=== PATIENT | female | born 1945 | race Caucasian/White ===

== ENCOUNTER 2019-09-01 06:13 | Inpatient (IN) | payer MEDICARE, MEDICAID, SELFPAY ==
[2019-09-01] VITALS (17 sets, daily range): BP systolic 123–187; BP diastolic 53–86; PULSE 61–103; RESP 17–80; TEMP 36.1–37; O2SAT 91–100; BMI 36.8
--- NOTE | 2019-09-01 | ECHO_ITS ---
Patient Info Name: Nicole Gross Age: 74 years : 1945 Gender: Female Ht: 65 in Wt: 221 lbs BSA: 2.19 m2 HR: 64 bpm BP: 145 / 63 mmHg Heart Rhythm: Sinus Rhythm Technical Quality: Good Exam Date: 09/01/2019 1:42 PM Exam Location: [facility] Pulmonary Patient Status: Outpatient Admit Date: 09/01/2019 Staff Ordering Physician: Kenji Naylor MD Bench Lathe Operator: Jose Martin Machuca, RAQUEL, RT Attending Provider: Merritt Cobian MD Referring Physician: [facility] ; Exam Type: CA echo dop color flow w con Study Info Indications R07.89 - Other chest pain Complete two-dimensional, color flow and Doppler transthoracic echocardiogram is performed with contrast to opacify the left ventricle and to improve the deliniation of the left ventricle endocardial borders. Summary 1. Left ventricular chamber dimension is mildly enlarged. 2. Left ventricular systolic function is mildly reduced, estimated at 50-55%. 3. There is moderately increased left ventricular wall thickness. 4. The left ventricular diastolic function is grade II diastolic dysfunction. 5. The basal inferior wall, mid inferior wall, basal inferoseptal, and mid inferoseptal are hypokinetic. 6. Left atrial chamber dimension is mildly enlarged. 7. The mitral valve has thickened leaflets and calcified annulus. 8. There is mild mitral valve stenosis. 9. There is moderate mitral valve regurgitation. 10. There is mild tricuspid valve regurgitation. 11. Severe pulmonary hypertension, estimated pulmonary arterial systolic pressure is 61 mmHg. 12. There is mild pulmonic regurgitation. Left Ventricle Left ventricular chamber dimension is mildly enlarged. Left ventricular systolic function is mildly reduced, estimated at 50-55%. There is moderately increased left ventricular wall thickness. The left ventricular diastolic function is grade II diastolic dysfunction. The basal inferior wall, mid inferior wall, basal inferoseptal, and mid inferoseptal are hypokinetic. All other castillo appear normal. Right Ventricle Right ventricular chamber dimension is normal. Right ventricular systolic function is normal. Left Atria Left atrial chamber dimension is mildly enlarged. Right Atria Right atrial chamber dimension is normal. Atrial Septum Intact interatrial septum visualized by color flow imaging. Aortic Valve The aortic valve is trileaflet. There is mild aortic valve sclerosis. There is no aortic valve stenosis. There is trace aortic valve regurgitation. Pulmonic Valve The pulmonic valve is normal. There is no pulmonic valve stenosis. There is mild pulmonic regurgitation. Mitral Valve The mitral valve has thickened leaflets and calcified annulus. There is mild mitral valve stenosis. There is moderate mitral valve regurgitation. Tricuspid Valve The tricuspid valve leaflets are normal. There is no significant tricuspid valve stenosis. There is mild tricuspid valve regurgitation. Severe pulmonary hypertension, estimated pulmonary arterial systolic pressure is 61 mmHg. Pericardium/Pleural The pericardium appears normal. There is no pericardial effusion. Inferior Vena Cava Dilated inferior vena cava with <50% collapse upon inspiration consistent with elevated right atrial pressure, 15 mmHg. Aorta The aortic root size at the sinus of Valsalva is normal. The prox ascending aorta size is normal. There is mild aortic atherosclerosis. Left Ventricular Outflow Tract
--- NOTE | ~2019-09-01 | MR_ITS ---
EXAMINATION: MR brain/brain stem wo con EXAM DATE: 09/02/2019 15:54 INDICATION: Right-sided hemiparesis. TECHNIQUE: Magnetic resonance imaging (MRI) of the brain/brain stem obtained without contrast. Jemima al T1, axial diffusion, gradient echo (T2*), T1, T2, FLAIR sequences obtained. There is no prior st udy for comparison. FINDINGS: There are no areas of restricted diffusion to suggest acute infarction. There is no acute hemorrhage seen on the T2*, a hemosiderin sensitive sequence. No intraparenchymal brain mass lesion. There is mild periventricular and subcortical T2/FLAIR signal hyperintensity, nonspecific but probab ly related to small vessel ischemic disease (microangiopathy). There is mild prominence of the sulc i and ventricles related to cerebral atrophy. There are no extra-axial collections. Flow voids are seen in the cerebral arteries on the T2-weighted sequences consistent with their expected patency. The orbits are unremarkable. Soft tissue is unremarkable. IMPRESSION: 1. No acute intracranial findings. 2. Chronic age related findings. Reviewed, dictated and finalized at location A.
--- NOTE | ~2019-09-01 | MR_ITS ---
EXAMINATION: MRA neck wo con DATE: 09/05/2019 12:59 INDICATION: Right hemiparesis. TECHNIQUE: Magnetic resonance angiography (MRA) of the neck was performed without intravenous contras t. Sequences included axial 2D-time of flight T1-weighted FSPGR and axial Inhance without intravenous contrast. COMPARISON: Ultrasound 09/02/2019 FINDINGS: Motion artifact is noted. The vertebral arteries are codominant. The vertebral arteries are not well evaluated approximately and distally. There is plaque in the proximal internal carotid arteries, whic h are tortuous. The degree of stenosis of the proximal internal carotid arteries relative to normal d istal artery lumen diameters could not be measured. IMPRESSION: 1. Nondiagnostic evaluation of the proximal internal carotid arteries. Reviewed, dictated and finalized at location E.
--- NOTE | ~2019-09-01 | US_ITS ---
EXAMINATION: US renal BI DATE: 09/01/2019 15:18 INDICATION: Renal failure TECHNIQUE: Multiple grayscale and Doppler ultrasound images of the kidneys were obtained. COMPARISON: None. FINDINGS: The right kidney measures 9.0 x 4.1 x 5.2 cm. The left kidney measures 10.9 x 4.0 x 4.0 cm. The kidneys demonstrate increased parenchymal echogenicity. There is no hydronephrosis. The bladder is normal. IMPRESSION: 1. Medical renal disease with mild atrophy of the kidneys. Reviewed, dictated and finalized at location A.
--- NOTE | ~2019-09-01 | NM_ITS ---
EXAMINATION: NM pulmonary perfusion EXAM DATE: 09/01/2019 15:09 INDICATION: Shortness of breath. TECHNIQUE: A perfusion lung scan was performed. The patient was injected with 5 mCi technetium 99m M AA and imaged. Modified PIOPED 2 criteria used for interpretation of perfusion without ventilation st udy (recent chest x-ray instead for comparison). Correlation is made to chest CT abdomen pelvis and c hest x-ray from same day. FINDINGS: Mildly heterogeneous perfusion without focal segmental perfusion defect. IMPRESSION: Low probability pulmonary embolism. Reviewed, dictated and finalized at location A.
--- NOTE | ~2019-09-01 | CT_ITS ---
EXAMINATION: CT abdomen pelvis wo con DATE: 09/01/2019 15:20 INDICATION: Abdominal and epigastric pain TECHNIQUE: Computed tomography (CT) of the abdomen and pelvis was performed without intravenous contr ast. The dose-length product (DLP) was 1462.71 mGy-cm. Automated exposure control and iterative recon struction technique were employed. COMPARISON: None FINDINGS: There are small pleural effusions, left greater than right. Smooth interlobular septal thic kening minimal airspace opacities are seen in the visualized lung bases. The heart size is normal. Th e gallbladder is surgically absent. The liver, spleen, pancreas, and adrenal glands are normal. There is mild atrophy of the kidneys. There is calcified atherosclerosis of the aorta and many of the othe r arteries. No pathologically enlarged abdominal or pelvic lymph nodes are identified. There is no fr ee intraperitoneal gas or evidence of bowel obstruction. Colonic diverticulosis is present without ev idence of diverticulitis. There is an old intertrochanteric fracture of the left femur with nonunion and proximal migration of the left femoral shaft. There is moderate lumbar spondylosis. IMPRESSION: 1. No CT correlate for the patient's symptoms. 2. Small pleural effusions, mild pulmonary edema, and mild atelectasis of the visualized lung bases. Reviewed, dictated and finalized at location A. IMPRESSION: 1. No CT correlate for the patient's symptoms. 2. Small pleural effusions, mild pulmonary edema, and mild atelectasis of the v isualized lung bases.
--- NOTE | ~2019-09-01 | CT_ITS ---
EXAMINATION: CT chest high resolution [facility] EXAM DATE: 09/02/2019 16:20 INDICATION: Interstitial lung disease, pulmonary fibrosis. Chest pain. TECHNIQUE: Spiral CT of the chest without contrast. HRCT. Axial, coronal and sagittal images were re viewed. Coronal maximum intensity pixel images of chest reviewed. The dose-length product (DLP) for this examination was 615.51 mGy-cm. The exposure was tailored according to patient size (auto mA ex posure control), and iterative reconstruction (ASIR) was used as additional dose reduction technique. There is no prior study for comparison. FINDINGS: There is cardiomegaly and pulmonary vascular congestion. The main, central pulmonary art eries are dilated which can indicate elevated pulmonary arterial pressure, pulmonary arterial hyperte nsion. There is moderate amount of patchy bibasilar edema and/or pneumonia. There are small to moder ate bilateral pleural effusions with associated adjacent atelectasis. Tracheobronchial tree is patent . There is no mediastinal, hilar or axillary lymphadenopathy. There is no pneumothorax. There is moderate coronary arterial calcification, arterial sclerosis. There are cholecystectomy clips. T here is thoracic spondylosis without osteoblastic or osteolytic lesions identified. IMPRESSION: 1. Cardiomegaly, congestion, patchy right bilateral edema and/or pneumonia. 2. Small to moderate pleural effusions with adjacent compressive atelectasis. Reviewed, dictated and finalized at location A.
--- NOTE | ~2019-09-01 | XR_ITS ---
EXAMINATION: XR chest 1V portable DATE: 09/01/2019 06:27 INDICATION: Chest pain. TECHNIQUE: A single frontal view of the chest was obtained. COMPARISON: None. FINDINGS: There is a diffuse interstitial pattern, consistent with mild pulmonary edema. There is a s mall left pleural effusion. No pneumothorax. The heart size is normal. IMPRESSION: 1. Mild pulmonary edema with small left pleural effusion. Reviewed, dictated and finalized at location A.
--- NOTE | ~2019-09-01 | US_ITS ---
EXAMINATION: US carotid duplex BI EXAM DATE: 09/02/2019 16:11 INDICATION: Right-sided hemiparesis. TECHNIQUE: Grayscale, color and pulsed Doppler images of the cervical carotid arteries were obtained . The degree of vessel stenosis is placed in one of the following categories: normal, <50% stenosis, 50-69% stenosis, >=70% stenosis but less than near-occlusion, near-occlusion, or occlusion. Note that percent stenosis relative to normal distal artery lumen diameter is indirectly measured from velocit y measurements as described by Brain, et al. Radiology 2003; 229:340-346. There is no prior study fo r comparison. FINDINGS: RIGHT SIDE: Right common carotid artery peak systolic velocity (PSV in cm/s): 63 Right bulb/internal carotid artery peak systolic velocity (PSV in cm/s): 242 Right internal carotid artery end diastolic velocity (EDV in cm/s): 58 Right ICA/CCA peak systolic ratio: 3.9 Right external carotid artery peak systolic velocity (PSV in cm/s): 198 Right vertebral artery antegrade flow: yes There is right carotid bulb plaque, with elevated velocity corresponding to estimated stenosis >=70% stenosis but less than near-occlusion. LEFT SIDE: Left common carotid artery peak systolic velocity (PSV in cm/s): 89 Left bulb/internal carotid artery peak systolic velocity (PSV in cm/s): 184 Left internal carotid artery end diastolic velocity (EDV in cm/s): 30 Left ICA/CCA peak systolic ratio: 2.1 Left external carotid artery peak systolic velocity (PSV in cm/s): 126 Left vertebral artery antegrade flow: yes There is mild carotid bulb plaque with elevated velocity, but visually less than 50% stenosis. IMPRESSION: 1. >=70% stenosis but less than near-occlusion right internal carotid artery. 2. Less than 50 percent stenosis in the left internal carotid artery. Reviewed, dictated and finalized at location A.
--- NOTE | ~2019-09-01 | XR_ITS ---
EXAMINATION: XR chest 1V portable INDICATION: Shortness of breath TECHNIQUE: Portable AP chest at 1322 hours COMPARISON: 09/01/2019 FINDINGS: There is stable cardiomegaly. Diffuse interstitial and airspace opacities are present, wors t in the mid and lower lung zones. Small pleural effusions are noted. There is no pneumothorax. 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 IMPRESSION: 1. Diffuse lung disease,, worst in the mid and lower lung zones, consistent with pneumonia and/or pul monary edema and/or atelectasis. 2. Stable cardiomegaly. 3. Small pleural effusions. Reviewed, dictated and finalized at location A. IMPRESSION: 1. Diffuse lung disease,, worst in the mid and lower lung zones, consistent wit h pneumonia and/or pulmonary edema and/or atelectasis. 2. Stable cardiomegaly. 3. Small pleural effusions.
--- NOTE | ~2019-09-01 | US_ITS ---
EXAMINATION: US venous doppler LE RT DATE: 09/01/2019 15:19 INDICATION: Right lower limb edema TECHNIQUE: Deng scale images without and with compression and Doppler images of the right lower extre mity veins were obtained. COMPARISON: None FINDINGS: The right common femoral vein, profunda femoral vein, femoral vein, popliteal vein, peronea l trunk, posterior tibial veins, and greater saphenous vein are patent. IMPRESSION: 1. Patent right lower extremity veins. No evidence of deep venous thrombosis. Reviewed, dictated and finalized at location A.
--- NOTE | ~2019-09-01 | CT_ITS ---
EXAMINATION: CT brain wo con DATE: 09/03/2019 13:48 INDICATION: Mental status change. TECHNIQUE: Computed tomography (CT) of the head was performed without intravenous contrast. The mA wa s adjusted according to patient size. Iterative reconstruction technique was employed. The dose-lengt h product was 681.00 mGy-cm. COMPARISON: Brain MRI 09/02/2019 FINDINGS: There are scattered areas of low attenuation in the cerebral white matter. There is no intr acranial hemorrhage, acute infarction, or abnormal intracranial mass lesion. The ventricles are asael l in size. The orbits are normal. There is mucosal thickening in the paranasal sinuses. Left maxillar y sinus is small with thickened castillo, consistent with chronic sinusitis. The mastoid air cells are n ormal. IMPRESSION: 1. Moderate nonspecific cerebral white matter disease, which likely represents chronic small vessel i schemic disease. 2. Chronic sinusitis. Reviewed, dictated and finalized at location A. IMPRESSION: 1. Moderate nonspecific cerebral white matter disease, which likely represents chronic small vessel ischemic disease. 2. Chronic sinusitis.
--- NOTE | ~2019-09-01 | XR_ITS ---
EXAMINATION: XR chest 1V portable DATE: 09/06/2019 12:38 INDICATION: Shortness of breath. TECHNIQUE: A single frontal view of the chest was obtained. COMPARISON: Chest single view 09/03/2019, chest CT 09/02/2019 FINDINGS: Sensitivity is decreased by obesity. There is a diffuse interstitial pattern. There are air space opacities in the mid and lower lung zones. There are small pleural effusions. No pneumothorax. Cardiomegaly is noted. IMPRESSION: 1. Diffuse lung disease with worsening on the right, likely moderate pulmonary edema. 2. Small pleural effusions. 3. Cardiomegaly. Reviewed, dictated and finalized at location A.
--- NOTE | 2019-09-01 06:13 | ED.CHESTPAIN ---
HPI - Chest Pain General Chief Complaint: Chest Pain <Brain Dye MD - Last Filed: 09/01/19 19:38> Stated Complaint: stemi <Brain Dye MD - Last Filed: 09/01/19 19:38> Time Seen by Provider: 09/01/19 07:24 <Brain Dye MD - Last Filed: 09/01/19 19:38> History of Present Illness HPI narrative: 74 yo female w/ h/o CAD BIBEMS from long-term for suspected STEMI. EMS was originally called out for low oxygen saturation. While they were there the pateint complained of chest and back pain. EKG at that time showed a left bundle branch block. EMS called a STEMI. She was given aspirin and nitro. On arrival to the ED she is pain free. She still c/o some mild SOB. She is reportedly supposed to be schedule for a cardiac cath, but it has been postponed due to COVID-19. <Brain Dye MD - Last Filed: 09/01/19 19:38> Related Data Home Medications: Home Medications Medication Instructions Recorded Confirmed alprazolam 0.5 mg PO TID PRN 09/01/19 09/01/19 amlodipine 5 mg PO DAILY 09/01/19 09/01/19 aspirin 81 mg PO QAM 09/01/19 09/01/19 atorvastatin 80 mg PO HS 09/01/19 09/01/19 cyclobenzaprine 5 mg PO TID PRN 09/01/19 09/01/19 duloxetine 30 mg PO QAM 09/01/19 09/01/19 esomeprazole magnesium [Nexium] 40 mg PO QAM 09/01/19 09/01/19 famotidine 20 mg PO DAILY 09/01/19 09/01/19 gabapentin 300 mg PO TID 09/01/19 09/01/19 glipizide 5 mg PO DAILY 09/01/19 09/01/19 insulin glargine [Basaglar KwikPen 20 unit SUBCUT QPM 09/01/19 09/01/19 U-100 Insulin] ipratropium-albuterol 3 ml INHALATION Q6H PRN 09/01/19 09/01/19 isosorbide dinitrate 30 mg PO TID 09/01/19 09/01/19 metoprolol tartrate 25 mg PO QAM 09/01/19 09/01/19 nitroglycerin 0.4 mg SUBLINGUAL Q5-15M PRN 09/01/19 09/01/19 paroxetine mesylate 40 mg PO HS 09/01/19 09/01/19 phenazopyridine 100 mg PO TID PRN 09/01/19 09/01/19 ranolazine 1,000 mg PO Q12H PRN 09/01/19 09/01/19 tamsulosin [Flomax] 0.4 mg PO QAM 09/01/19 09/01/19 tizanidine 2 mg PO TID PRN 09/01/19 09/01/19 tramadol 50 mg PO Q4-6H PRN 09/01/19 09/01/19 <Brain Dye MD - Last Filed: 09/01/19 19:38> Allergies/Adverse Reactions: Allergies Allergy/AdvReac Type Severity Reaction Status Date / Time codeine Allergy Unknown Other Verified 09/01/19 07:47 <Brain Dye MD - Last Filed: 09/01/19 19:38> Review of Systems Review of Systems: All systems reviewed & are unremarkable except as noted in HPI and below <Brain Dye MD - Last Filed: 09/01/19 19:38> Constitutional: Constitutional: Denies chills and Denies fever(s) <Brain Dye MD - Last Filed: 09/01/19 19:38> ENT: Denies sore throat <Brain Dye MD - Last Filed: 09/01/19 19:38> Cardiovascular: Cardiovascular: Reports chest pain <Brain Dye MD - Last Filed: 09/01/19 19:38> Respiratory: Respiratory: Reports dyspnea <Brain Dye MD - Last Filed: 09/01/19 19:38> Gastrointestinal: Gastrointestinal: Denies abdominal pain <Brain Dye MD - Last Filed: 09/01/19 19:38> Musculoskeletal: Musculoskeletal: Reports back pain <Brain Dye MD - Last Filed: 09/01/19 19:38> Neurologic: Denies dizziness and Denies weakness <Brain Dye MD - Last Filed: 09/01/19 19:38> [facility] Past Medical History Medical History: Medical History Anxiety and depression Chronic back pain Chronic bronchitis Chronic renal insufficiency, stage IV (severe) Chronic respiratory failure with hypoxia chronically on 2 L per nasal cannula. Coronary artery disease Wanted coronary artery stent and stated she is supposed to get 2 more. last catheterization about 5 years ago Diabetic neuropathy lower extremity DM2 (diabetes mellitus, type 2) insulin-dependent Hemorrhoids Hyperlipidemia associated with type 2 diabetes mellitus Hypertension associated with diabetes Hypothyroidism <Brain Dye,
--- NOTE | 2019-09-01 06:15 | ECG_ITS ---
Measurements Intervals [place] Rate: 78 P: 89 LA: 240 QRS: 5 QRSD: 190 T: 198 QT: 471 QTc: 540 Interpretive Statements SINUS RHYTHM WITH FIRST DEGREE AV BLOCK LEFT BUNDLE BRANCH BLOCK BASELINE WANDER- V2-V6 ABNORMAL ECG Electronically Signed On 09-01-2019 12:37:01 CDT by Juni Ocampo D.O.
[2019-09-01 06:25] LABS: Basophils Percent Auto 0.2 % (0.2-1.2); Eosinophils Absolute Auto 0.1 K/mm3 (0-0.3); Eosinophils Percent Auto 1.2 % (0-4.4); Hematocrit 27.3 % (37.0-47.0); Hemoglobin 8.6 g/dL (12.0-15.0); Immature Granulocyte Absolute 0.05 K/mm3 (0.00-0.031); Immature Granulocyte Percent A 0.5 % (0-0.5); Lymphocytes Absolute Auto 0.57 K/mm3 (0.9-3.2); Lymphocytes Percent Auto 5.4 % (18.3-44.2); Mean Corpuscular HGB Conc 31.5 g/dl (32-36); Mean Corpuscular Hemoglobin 31.4 pg (26-34); Mean Corpuscular Volume 99.6 fl (80-100); Mean Platelet Volume 9.9 fl (7.4-10.4); Monocytes Absolute Auto 0.5 K/mm3 (0.1-0.6); Monocytes Percent Auto 4.8 % (2.6-8.5); Neutrophils Absolute Auto 9.3 K/mm3 (1.3-6.7); Neutrophils Percent Auto 87.9 % (45.5-73.1); Platelet Count Result 196 k/mm3 (150-375); Red Blood Count 2.74 M/mm3 (4.2-5.4); Red Cell Distribution Width 13.4 % (11.5-14.5); White Blood Count 10.6 K/mm3 (4.5-10.0)
--- NOTE | 2019-09-01 06:36 | PC.NURSE ---
Pt presents to ER via EMS from [place] with c/o R sided CP, onset 04:30 this am. pt states pain woke her up from sleep and radiated into her back. pt states, I don't think I had enough oxygen because after they gave me more the pain went away. pt is on 2L baseline. pt was given 2 SLN and [address] CLERK. pt denies pain upon arrival to ER. pt VS stable, RR even and unlabored. pt states she has extensive cardiac hx and is due for 2 stents.
[2019-09-01 06:39] LABS: Alanine Aminotransferase 11 U/L (4-35); Albumin Level 3.9 g/dL (3.5-5.1); Alkaline Phosphatase 86 U/L (38-126); Aspartate Amino Transferase 14 U/L (14-36); Bilirubin,Total 0.5 mg/dL (0.2-1.3); Blood Urea Nitrogen 49 mg/dL (7-17); Calcium 8.7 mg/dL (8.4-10.2); Carbon Dioxide 23 mmol/L (22-30); Chloride 102 mmol/L (98-107); Cholesterol 136 mg/dL (0-200); Estimated CRCL calculation 23 ml/min; Estimated Glomerular Filt Rate 20; Glucose 132 mg/dL (65-105); HDL Direct 54 mg/dL; Potassium 5.4 mmol/L (3.4-5.0); Prothrombin Time 12.9 Seconds (11.1-14.7); Sodium 134 mmol/L (137-145); Triglycerides 123 mg/dL (<150)
[2019-09-01 06:40] LABS: Partial Thromboplastin Time 35.6 SECONDS (22.3-36.8)
[2019-09-01 06:50] LABS: LDL Cholesterol Direct 58 mg/dL
[2019-09-01 06:53] LABS: Troponin I 0.017 ng/mL (0.000-0.034)
[2019-09-01] MEDS: METOPROLOL TARTRATE 50 MG TAB 25 MG PO (07:43)
[2019-09-01 09:16] LABS: Troponin I 0.016 ng/mL (0.000-0.034)
--- NOTE | 2019-09-01 11:32 | PM.CNCAR ---
Assessment and Plan Assessment and plan (1) Chest pain: Code(s): R07.9 - Chest pain, unspecified Status: Acute Assessment and Plan: it sounds if she has 2 types of chest pain. She probably has angina for which she was admitted to [facility] recently and workup including a stress test was performed. Unfortunately no records are available for review. She does have longstanding history of coronary disease and remote PCI to the RCA. It reportedly had been recommended that the patient have a cardiac catheterization but due to her renal insufficiency, medical management was pursued. Chest pain that occurred last night with severe shortness breath sounds more pleuritic in etiology and concerning for pulmonary embolism. Therefore workup will include and start with requesting records from [facility] as well as Dr. Sanches is office in particular most recent stress test, hospital records, office notes. 2D echocardiogram with Doppler is also ordered and will be reviewed. right leg venous Doppler because of her right lower extremity edema. A D-dimer will be ordered also. She will continue to be ruled out for myocardial infarction with serial cardiac enzymes. I will order a V/Q scan to evaluate for evidence of pulmonary embolism. (2) Coronary artery disease: Code(s): I25.10 - Atherosclerotic heart disease of [place] coronary artery without angina pectoris Status: Acute Assessment and Plan: Her Ranexa will be increased to 1000 mg p.o. b.i.d. and her other medications will be continued including aspirin 81 mg p.o. daily, atorvastatin 80 mg daily, isosorbide dinitrate 30 mg p.o. t.i.d., metoprolol 25 mg p.o. b.i.d.. (3) Chronic renal insufficiency, stage IV (severe): Code(s): N18.4 - Chronic kidney disease, stage 4 (severe) Status: Acute (4) Hypertension associated with diabetes: Code(s): E11.59 - Type 2 diabetes mellitus with other circulatory complications; I10 - Essential (primary) hypertension Status: Acute Assessment and Plan: as above. Diabetic management per hospitalist (5) Hyperlipidemia associated with type 2 diabetes mellitus: Code(s): E11.69 - Type 2 diabetes mellitus with other specified complication; E78.5 - Hyperlipidemia, unspecified Status: Acute Assessment and Plan: on statin History of Present Illness History of Present Illness Consult date/time: 09/01/19 11:32 Requesting physician: Niki Glass MD Consult reason: chest pain and shortness of breath Reason For Visit: Chest pain Narrative: date of service: 09/01/2019 History: Patient is 74-year-old female who has a history of coronary artery disease who currently lives in the retirement. She was brought in by ambulance for suspicion of a ST segment elevation myocardial infarction. She was found to have a left bundle branch block and EMS called a STEMI. She was given aspirin and nitroglycerin. She states that she was given nitroglycerin yesterday and she had no relief. She states that she had severe shortness of breath yesterday and pleuritic type chest pain around the right shoulder blade area. She has been having these symptoms daily since she was in [facility]. She recently saw her skidder runner Dr. Sanches nurse practitioner 2 days ago. Reportedly there was some conversation about a cardiac catheterization at some point in the recent past but given her renal insufficiency, there is concern about IV dye exposure pushing her into dialysis. Therefore medical management has been pursued. She was hospitalized in [address] [place] [address] because of chest pain which was anterior which radiated into the left jaw and left arm numbness. Ranexa was reportedly increased. Stress test was performed but I do not have this for review at this point. She does describe some right leg edema which has been present for the past several months. Shortness breath is severe and can oc
[2019-09-01 12:25] LABS: Glucose Point of Care 131 (65-105)
[2019-09-01 12:29] LABS: D Dimer 1.61 ug/mL (<0.48)
[2019-09-01 12:34] LABS: Blood Urea Nitrogen 47 mg/dL (7-17); Calcium 8.6 mg/dL (8.4-10.2); Carbon Dioxide 23 mmol/L (22-30); Chloride 102 mmol/L (98-107); Estimated CRCL calculation 23 ml/min; Estimated Glomerular Filt Rate 21; Glucose 143 mg/dL (65-105); Sodium 133 mmol/L (137-145)
[2019-09-01 12:45] LABS: Troponin I 0.015 ng/mL (0.000-0.034)
--- NOTE | 2019-09-01 13:08 | PM.IMHP ---
H&P: HPI History of Present Illness Chief complaint: Chest pain Narrative: Nicole Gross is a 74 year old female Who tells me that she was over at [facility] within the last week or so with chest pain. She said that she had an echo cardiac Doppler when she was there. She also told me that she was scheduled for cardiac catheterization and that she needed 2 stents however her kidneys were too bad for her to get the cardiac catheterization at this time. The patient has a history of already having 1 cardiac stent. She is also diabetic with hyperlipidemia and hypertension. She resides at [facility]. The patient was complaining of shortness of breath at the half-way. She is chronically on oxygen at 2 L per nasal cannula. When EMS got there the patient was complaining of epigastric pain that went through to her back area. She does have some chronic lower back pain but not in the upper back. When I examined her she had some epigastric discomfort. That was worsened by palpation of the abdomen. She has had history of cholecystectomy in the past. She tells me that her abdomen is tender all over. No fever no chills no nausea vomiting or diarrhea. She did not take anything at the half-way to resolve this discomfort. Her EKG at that time showed a left bundle branch block. A STEMI was called. She was given nitro and aspirin. When she came to the emergency room she was pain free. Patient has been on quarantine at the half-way due to the malik epidemic. Cardiology has been consulted and has already seen the patient. Patient was given her beta-janeen medication that was 2 this morning no heparin was started at this time. H&H was 8.6 and 27.3. Potassium is high at 5.4. BUN 49 creatinine 2.4. Her blood sugars 132. Chest x-ray read as mild pulmonary edema small left pleural effusion. EKG interpretation was sinus rhythm prolonged p.r. interval 1st degree AV block QRS slightly widen. Left bundle branch block. Date of service 09/01/2019 Review of Systems Review of Systems: All systems reviewed & are unremarkable except as noted in HPI and below Constitutional: Constitutional: Reports as per HPI and Reports no additional constitutional complaints Eyes: Eyes: Reports as per HPI and Reports no additional eye complaints ENT: Reports system reviewed and no additional complaints, except as documented and Reports Normal hearing present Cardiovascular: Cardiovascular: Reports no additional cardiovascular complaints Respiratory: Respiratory: Reports no additional respiratory complaints and Reports no additional respiratory complaints Gastrointestinal: Gastrointestinal: Reports as per HPI and Reports no additional gastrointestinal complaints Musculoskeletal: Musculoskeletal: Reports no additional musculoskeletal complaints Integumentary/Breasts: Skin/Breast: Reports system reviewed and no additional complaints, except as docu and Reports as per HPI Neurologic: Reports system reviewed and no additional complaints, except as documented, Reports as per HPI and Reports Normal hearing present Psychiatric: Psychiatric: Reports no additional psychiatric complaints and Reports as per HPI Endocrine: Endocrine: Reports no additional endocrine complaints Hematologic/Lymphatic: Hematologic/Lymphatic: Reports no additional hematologic/lymphatic complaints Allergic/Immunologic: Allergic/Immunologic: Reports no additional allergic/immunologic complaints [facility] Past Medical History Medical History (Updated 09/01/19 @ 13:56 by Araseli Batista NP) Anxiety and depression Chronic back pain Chronic bronchitis Chronic renal insufficiency, stage IV (severe) Chronic respiratory failure with hypoxia chronically on 2 L per nasal cannula. Coronary artery disease Wanted coronary artery stent and stated she is supposed to get 2 more. last catheterization about 5 years ago Diabetic neuropathy lower extremity DM2 (diabetes mellitus, ty
[2019-09-01] MEDS: PERFLUTREN LIPID MICROSPHERES 1.5 ML VIAL DILUTED TO 10 ML TOTAL VOLUME IV PUSH (14:19)
[2019-09-01] MEDS: ALPRAZolam 0.5 MG TABLET PO (15:54)
[2019-09-01] MEDS: ALBUTEROL SULFATE NEB 2.5 MG/0.5 ML INH INHALATION (16:29)
[2019-09-01] MEDS: SODIUM CHLORIDE 0.9% IV 1,000 ML 150 ML IV CONT (18:30)
[2019-09-01] MEDS: ISOSORBIDE DINITRATE 10 MG TABLET 30 MG PO (18:31)
[2019-09-01] MEDS: GABAPENTIN 300 MG CAPSULE PO (18:31)
[2019-09-01] MEDS: ACETAMINOPHEN 325 MG TABLET 650 MG PO (18:33)
[2019-09-01 18:43] LABS: Glucose Point of Care 180 (65-105)
[2019-09-01] MEDS: ATORVASTATIN 40 MG TABLET 80 MG PO (19:39)
[2019-09-01] MEDS: PANTOPRAZOLE 40 MG TABLET PO (19:39)
[2019-09-01] MEDS: PARoxetine 20 MG TABLET 40 MG PO (19:39)
[2019-09-01] MEDS: RANOLAZINE 500 MG TAB.ER.12H 1000 MG PO (19:39)
--- NOTE | 2019-09-01 19:47 | PCDIET ---
pt admitted into room 214 at 0919. Belongings have been verified.
[2019-09-01 21:23] LABS: Glucose Point of Care 146 (65-105)
[2019-09-01 23:44] LABS: Glucose Point of Care 134 (65-105)
[2019-09-02] VITALS (20 sets, daily range): BP systolic 116–175; BP diastolic 37–61; PULSE 55–112; RESP 18–22; TEMP 35.8–37; O2SAT 93–100
[2019-09-02] MEDS: ACETAMINOPHEN 325 MG TABLET 650 MG PO ×2 (00:32→10:17)
[2019-09-02] MEDS: ALPRAZolam 0.5 MG TABLET PO ×4 (00:32→21:36)
[2019-09-02] MEDS: SODIUM CHLORIDE 0.9% IV 1,000 ML 125 ML IV CONT (05:38)
[2019-09-02 05:47] LABS: Glucose Point of Care 87 (65-105)
[2019-09-02 05:48] LABS: Alanine Aminotransferase 10 U/L (4-35); Albumin Level 3.2 g/dL (3.5-5.1); Alkaline Phosphatase 63 U/L (38-126); Anion Gap 12.6 mmol/L (7-16); Aspartate Amino Transferase 13 U/L (14-36); Bilirubin,Total 0.4 mg/dL (0.2-1.3); Blood Urea Nitrogen 45 mg/dL (7-17); Calcium 8.3 mg/dL (8.4-10.2); Carbon Dioxide 21 mmol/L (22-30); Chloride 105 mmol/L (98-107); Estimated CRCL calculation 23 ml/min; Estimated Glomerular Filt Rate 21; Glucose 96 mg/dL (65-105); Lipase 21 U/L (23-300); Magnesium 2.2 mg/dL (1.6-2.3); Potassium 4.6 mmol/L (3.4-5.0); Sodium 134 mmol/L (137-145)
[2019-09-02 06:30] LABS: CRP 20.6 mg/dL (<1.0)
[2019-09-02 06:33] LABS: Hemoglobin A1C 5.3 % (<5.7)
--- NOTE | 2019-09-02 08:12 | PM.CNNEP ---
Assessment and Plan Assessment and plan (1) Abnormal results of kidney function studies: Code(s): R94.4 - Abnormal results of kidney function studies Status: Acute Assessment and Plan: the patient has an elevated creatinine. This has remained stable over 24 hours. It was elevated [facility] as well but records are unavailable. Her ultrasound shows echogenic kidneys and 1 of them is small. I suspect that she has chronic kidney disease but it is unclear what her true baseline is. Etiologies could include hypertension, diabetes, vascular disease, obesity. She does have pulmonary hypertension which could imply sleep apnea. The patient does not know if she snores. Other causes of kidney disease might include obstruction, glomerulonephritis, or interstitial nephritis but there is no major sign or symptom of these. her renal ultrasound ruled out obstruction. To evaluate this I am going to get serology, immunofixation, And an apnea link. (2) Coronary artery disease: Code(s): I25.10 - Atherosclerotic heart disease of [place] coronary artery without angina pectoris Status: Chronic Assessment and Plan: Echocardiogram shows diastolic dysfunction and pulmonary hypertension. The patient has significant coronary artery disease. Cardiology is on the case. If her creatinine stays stable, and her evaluation is negative, then she would be at higher risk for nephrotoxicity from a cardiac catheterization but we would not be able to improve the risk. She is not having chest pain now. (3) DM2 (diabetes mellitus, type 2): Code(s): E11.9 - Type 2 diabetes mellitus without complications Status: Chronic Assessment and Plan: the patient has diabetes. She is on sliding scale insulin. (4) Hypertension associated with diabetes: Code(s): E11.59 - Type 2 diabetes mellitus with other circulatory complications; I10 - Essential (primary) hypertension Status: Chronic Assessment and Plan: Her blood pressure is variable. Currently it is a bit high. She is on amlodipine and metoprolol. Her pulse is 74. Will increase both medications to get the blood pressure down. (5) Hyperlipidemia associated with type 2 diabetes mellitus: Code(s): E11.69 - Type 2 diabetes mellitus with other specified complication; E78.5 - Hyperlipidemia, unspecified Status: Acute Assessment and Plan: She is on atorvastatin (6) Abdominal pain: Code(s): R10.9 - Unspecified abdominal pain Status: Acute Assessment and Plan: etiology of the abdominal pain is not clear. CT scan is negative. She has had a cholecystectomy. Her lipase is normal. (7) Right sided weakness: Code(s): R53.1 - Weakness Status: Acute Assessment and Plan: She has right hand stenotypist weakness. She says that her speech is different from the way it was before. Will get an MRI and carotid Dopplers. History of Present Illness Reason for Consult Consult date: 09/02/19 Chief Complaint Chief complaint: Chest pain History of Present Illness Narrative: Shreya is a very pleasant 74-year-old lady who has hypertension, diabetes, hyperlipidemia, coronary disease, diastolic dysfunction, GERD, colon polyps. The patient came in for chest pain. Her problem started a couple of weeks ago when she had crushing chest pain which went down the left arm and into the left jaw. The patient also had some speech difficulties. she went to [facility] in [place]. She was admitted.She was treated medically for cardiac issues. Dr. Sanches from Cardiology saw her And told her that she could not have a cardiac catheterization because of her kidneys. Her medicine regimen was intensified and she was discharged. She did question whether she might have had a stroke because her speech difficulty has never gone away. Recently the patient started hav
[2019-09-02 09:12] LABS: Creatine Kinase 73 U/L (30-135)
[2019-09-02 09:20] LABS: Complement C3 102 mg/dL (88-165)
[2019-09-02 09:26] LABS: Erythrocyte Sedimentation Rate > 140 mm/hr (0-20)
[2019-09-02] MEDS: amLODIPine BESYLATE 5 MG TABLET PO (10:12)
[2019-09-02] MEDS: TAMSULOSIN HCL 0.4 MG CAPSULE PO (10:13)
[2019-09-02] MEDS: DULoxetine HCL 30 MG CAPSULE.DR PO (10:13)
[2019-09-02] MEDS: METOPROLOL TARTRATE 25 MG TABLET PO ×2 (10:13→21:28)
[2019-09-02] MEDS: ASPIRIN 81 MG CHEWABLE TABLET PO (10:13)
[2019-09-02] MEDS: GABAPENTIN 300 MG CAPSULE PO ×3 (10:13→18:27)
[2019-09-02] MEDS: PANTOPRAZOLE 40 MG TABLET PO ×2 (10:14→21:27)
[2019-09-02] MEDS: ISOSORBIDE DINITRATE 10 MG TABLET 30 MG PO (10:14)
[2019-09-02] MEDS: glipiZIDE 5 MG TABLET PO (10:15)
[2019-09-02] MEDS: RANOLAZINE 500 MG TAB.ER.12H 1000 MG PO ×2 (10:15→21:28)
[2019-09-02 10:19] LABS: Hepatitis C Virus Antibody Negative (Negative)
--- NOTE | 2019-09-02 10:21 | PM.PNCARD ---
Progress Note: A&P Assessment and Plan (1) Chest pain: Code(s): R07.9 - Chest pain, unspecified Status: Acute Assessment and Plan: it sounds if she has 2 types of chest pain. She probably has angina for which she was admitted to [facility] recently and workup including a stress test was performed. Unfortunately no records are available for review. She does have longstanding history of coronary disease and remote PCI to the RCA. It reportedly had been recommended that the patient have a cardiac catheterization but due to her renal insufficiency, medical management was pursued. Chest pain that occurred last night with severe shortness breath sounds more pleuritic in etiology and concerning for pulmonary embolism. Personally reviewed records from [facility]. She did have a stress test on August 09 showing fixed inferior defect but no ischemia. Normal ejection fraction. Due to her renal dysfunction, it was decided to pursue medical management at that time. She does have recurrence chest pain today. Will give her a nitroglycerin tablet as well as some Tylenol. Continue PPI. Will increase her metoprolol to 25 mg p.o. b.i.d. and also increase her Isordil. (2) Coronary artery disease: Code(s): I25.10 - Atherosclerotic heart disease of [place] coronary artery without angina pectoris Status: Chronic Assessment and Plan: Continue [id number] mg p.o. b.i.d. and her other medications will be continued including aspirin 81 mg p.o. daily, atorvastatin 80 mg daily, isosorbide dinitrate 30 mg p.o. t.i.d., metoprolol (3) Chronic renal insufficiency, stage IV (severe): Code(s): N18.4 - Chronic kidney disease, stage 4 (severe) Status: Acute (4) Hypertension associated with diabetes: Code(s): E11.59 - Type 2 diabetes mellitus with other circulatory complications; I10 - Essential (primary) hypertension Status: Chronic Assessment and Plan: as above. Diabetic management per hospitalist (5) Hyperlipidemia associated with type 2 diabetes mellitus: Code(s): E11.69 - Type 2 diabetes mellitus with other specified complication; E78.5 - Hyperlipidemia, unspecified Status: Acute Assessment and Plan: on statin Subjective Date/time seen: 09/02/19 10:21 Interval history: reason for admission: Chest pain, shortness of breath date of service 7/ 23/20: She has some epigastric pain today. She is anxious she is a little anxious and states that her symptoms improved with Xanax and Tylenol. Not short of breath. Review of Systems Review of Systems: All systems reviewed & are unremarkable except as noted in HPI and below Constitutional: Constitutional: Denies fatigue, Denies headache(s) and Denies lethargy Eyes: Eyes: Denies blurry vision ENT: Reports Normal hearing present, Denies headache(s), Denies lip swelling, Denies epistaxis and Denies neck pain Cardiovascular: Cardiovascular: Reports chest pain, Reports leg edema and Reports dyspnea Respiratory: Respiratory: Reports dyspnea Gastrointestinal: Gastrointestinal: Denies abdominal pain Genitourinary: Genitourinary: Denies hematuria and Denies flank pain Musculoskeletal: Musculoskeletal: Denies neck pain Integumentary/Breasts: Skin/Breast: Reports dry skin and Denies pruritus Neurologic: Reports Normal hearing present, Denies confusion and Denies headache(s) Psychiatric: Psychiatric: Denies anxiety and Denies confusion Endocrine: Endocrine: Denies fatigue and Denies flushing Hematologic/Lymphatic: Hematologic/Lymphatic: Denies easy bleeding Allergic/Immunologic: Allergic/Immunologic: Denies GI upset with certain foods and Denies lip swelling Exam Narrative: Exam Narrative: alert Const: General: no acute distress HENMT: General nose exam: Normal nares present Eyes: Sclera: sclerae normal Neck: Neck: supple and no JVD Resp: Effort & Inspection: normal respiratory effor
[2019-09-02 12:19] LABS: Glucose Point of Care 62 (65-105)
[2019-09-02] MEDS: ISOSORBIDE DINITRATE 20 MG TABLET 60 MG PO ×2 (13:41→18:28)
[2019-09-02] MEDS: HYDROCORTISONE ACETATE 25 MG SUPPOSITORY RECTAL ×2 (13:53→21:29)
--- NOTE | 2019-09-02 14:14 | PM.CNPUL ---
Assessment and Plan Assessment and plan (1) Interstitial lung disease: Code(s): J84.9 - Interstitial pulmonary disease, unspecified Status: Acute Assessment and Plan: Will order HRCT of the chest to better evaluate. Further recommendations to follow History of Present Illness History of Present Illness Consult date: 09/02/19 Chief complaint: Chest pain Narrative: 74 y/o with multiple medical problems including CRI, CAD, HTN, obesity, NANCY, COPD presents with substernal chest pressure radiating to her back. She said if felt like her normal angina just much worse over the past week and last longer, no responding as well to nitroglycerin. Trops were normal. She is short of breath and has cough productive of clear sputum. She takes albuterol/atrovent QID PRN for COPD. She quit smoking about 30 years ago but has 25-30 pack year smoking history. CXR this admission shows diffusion interstitial opacities more consistent with pulmonary fibrosis but CHF or atypical pneumonia are still possible although less likely. Review of Systems Review of Systems: All systems reviewed & are unremarkable except as noted in HPI and below PMFSH Past Medical History Medical History (Updated 09/02/19 @ 14:20 by Cristina Flores MD) Abdominal pain Abnormal results of kidney function studies Anxiety and depression Chronic back pain Chronic bronchitis Chronic renal insufficiency, stage IV (severe) Chronic respiratory failure with hypoxia chronically on 2 L per nasal cannula. Coronary artery disease Wanted coronary artery stent and stated she is supposed to get 2 more. last catheterization about 5 years ago Diabetic neuropathy lower extremity DM2 (diabetes mellitus, type 2) insulin-dependent Hemorrhoids Hyperlipidemia associated with type 2 diabetes mellitus Hypertension associated with diabetes Hypothyroidism Right sided weakness Surgical History Surgical History H/O bladder repair surgery H/O rectal polypectomy History of appendectomy History of removal of pigmented skin lesion Hx laparoscopic cholecystectomy Hx of heart artery stent x1 and stated she was scheduled for 2 more. Family History Family History Mother Heart disease Father Old age Son Diabetes mellitus Social History Social History Smoking status: Unknown if ever smoked Alcohol intake: never Substance use: never Gender identity (if verbalized by the patient): Female Spiritual care concerns: No Meds Home Medications and Allergies Home Medications Medication Instructions Recorded Confirmed Type alprazolam 0.5 mg PO TID PRN 09/01/19 09/01/19 History amlodipine 5 mg PO DAILY 09/01/19 09/01/19 History aspirin 81 mg PO QAM 09/01/19 09/01/19 History atorvastatin 80 mg PO HS 09/01/19 09/01/19 History cyclobenzaprine 5 mg PO TID PRN 09/01/19 09/01/19 History duloxetine 30 mg PO QAM 09/01/19 09/01/19 History esomeprazole magnesium [Nexium] 40 mg PO QAM 09/01/19 09/01/19 History famotidine 20 mg PO DAILY 09/01/19 09/01/19 History gabapentin 300 mg PO TID 09/01/19 09/01/19 History glipizide 5 mg PO DAILY 09/01/19 09/01/19 History insulin glargine [Basaglar KwikPen 20 unit SUBCUT QPM 09/01/19 09/01/19 History U-100 Insulin] ipratropium-albuterol 3 ml INHALATION Q6H PRN 09/01/19 09/01/19 History isosorbide dinitrate 30 mg PO TID 09/01/19 09/01/19 History metoprolol tartrate 25 mg PO QAM 09/01/19 09/01/19 History nitroglycerin 0.4 mg SUBLINGUAL Q5-15M PRN 09/01/19 09/01/19 History paroxetine mesylate 40 mg PO HS 09/01/19 09/01/19 History phenazopyridine 100 mg PO TID PRN 09/01/19 09/01/19 History ranolazine 1,000 mg PO Q12H PRN 09/01/19 09/01/19 History tamsulosin [Flomax] 0.4 mg PO QAM 09/01/19 09/01/19 History tizanidine 2 mg PO TID PRN 09/01/19 09/01/19 History tramadol 50 mg PO Q4
[2019-09-02 14:48] LABS: Glucose Point of Care 72 (65-105)
[2019-09-02 15:46] LABS: Add Urine Microscopic? YES; Appearance Urine Cloudy (Clear); Bacteria Urine Trace /hpf; Bilirubin Urine Negative (Negative); Blood Urine Negative (Negative); Color Urine Yellow (Yellow); Glucose Urine UA Negative (Negative); Ketones Urine Negative (Negative); Leukocyte Esterase Ur 3+ LEU/UL (NEGATIVE); Mucus Urine Rare /lpf; Nitrate Urine Negative (Negative); Protein Urine 2+ mg/dL (Negative); RBC Urine 21-50 /hpf (0-2); Specific Grav Ur 1.014 (1.001-1.035); Squamous Epithelial Cell Urine Moderate /hpf (Few); Urobilinogen Urine Negative mg/dL (<2.0); WBC Clumps Urine Present /HPF; WBC Urine >75 /hpf (0-3)
[2019-09-02 15:48] LABS: Creatinine Urine 49.5 mg/dL
[2019-09-02 15:50] LABS: Creatinine Urine 49.5 mg/dL; Total Protein Urine Random 116 mg/dL
[2019-09-02 15:54] LABS: Potassium Urine Random 29.8 meq/L; Sodium Urine Random 65 meq/L
[2019-09-02 15:54] LABS: Sodium Urine Random 65 meq/L
--- NOTE | 2019-09-02 15:54 | PM.IMPN ---
Progress Note: A&P Assessment and Plan (1) Chest pain: Code(s): R07.9 - Chest pain, unspecified Status: Acute Assessment and Plan: Patient has hx of CAD. Trop negative x 3. EKG showing LBBB (chronic). Doppler negative for DVT RLE. VQ is low probability. HRCT showing CMG with congestion and patchy right bilateral edema and/or pneumonia. CT of the abdomen not showing any findings to determine etiology of her CP. Echo showing EF 50-55%, Grade II DD with HK inferior wall and severe pulmonary HTN and moderate MR. Ranexa and Isordil adjusted. Monitor on tele. (2) Right sided weakness: Code(s): R53.1 - Weakness Status: Acute Assessment and Plan: She has chronic weakness that she states is related to neuropathy. She had MRI brain showing no acute findings. No old CVAs noted. Carotid doppler showing >70% stenosis right ICA. No plans for CTA to verify severity. Not a candidate for stenting. Contineu medical managment. (3) DM2 (diabetes mellitus, type 2): Code(s): E11.9 - Type 2 diabetes mellitus without complications Status: Chronic Assessment and Plan: A1c 5.3. Currently on Lantus and Glipizide from home that was continued here. She is being monitored with Accu-Cheks AC and HS. Glucose well controlled. Will stop glipizide since she is too tightly controlled. (4) Chronic respiratory failure with hypoxia: Code(s): J96.11 - Chronic respiratory failure with hypoxia Status: Chronic Assessment and Plan: It is listed that patient is on oxygen at 2 L per nasal cannula chronically but patient denies. The patient does have chronic bronchitis with chronic cough. She is currently on 3L NC. She has nebulizer treatments available as needed. Wean o2 as toelrated. Suspect she probably has underlying NANCY given the pulm HTN. Apnea link once she down or off her O2. (5) Anxiety and depression: Code(s): F41.9 - Anxiety disorder, unspecified; F32.9 - Major depressive disorder, single episode, unspecified Status: Chronic Assessment and Plan: Mood stable. Continued with her alprazolam prn. Continue her scheduled Cymbalta and paroxetine. (6) Hyperlipidemia associated with type 2 diabetes mellitus: Code(s): E11.69 - Type 2 diabetes mellitus with other specified complication; E78.5 - Hyperlipidemia, unspecified Status: Acute Assessment and Plan: LFTs okay. Continue Lipitor (7) Hypertension associated with diabetes: Code(s): E11.59 - Type 2 diabetes mellitus with other circulatory complications; I10 - Essential (primary) hypertension Status: Chronic Assessment and Plan: BP reviewed on 09/02/19. BP well controlled. Continue Norvasc. Continue Metoprolol and Isordil and doses advanced. Stop Norvasc if BP becomes soft. (8) Chronic renal insufficiency, stage IV (severe): Code(s): N18.4 - Chronic kidney disease, stage 4 (severe) Status: Acute Assessment and Plan: Patient with known chronic renal failure. Cr 2.4 on admission. No old lab values here to compare but old labs from [facility]'s showing Cr 2.2-2.3 earlier this year. Nephrology consulted and appreciate their input. Baseline renal labs ordered and ESR >140. Renal US showing medical renal disease with mild atrophy of the kidneys. Will check RF. Follow up on other lab values. Currently on IVF but need to be careful since imaging showing pulmonary edema. (9) Coronary artery disease: Code(s): I25.10 - Atherosclerotic heart disease of [place] coronary artery without angina pectoris Status: Chronic Assessment and Plan: As above. Continue medical management. Patient should follow up with her [employer] after discharge. (10) Diabetic neuropathy: Code(s): E11.40 - Type 2 diabetes mellitus with diabetic neuropathy, unspecified Status: Chronic Assessment and Plan: Patient i
[2019-09-02 18:40] LABS: Glucose Point of Care 150 (65-105)
[2019-09-02] MEDS: ATORVASTATIN 40 MG TABLET 80 MG PO (21:29)
[2019-09-02] MEDS: PARoxetine 20 MG TABLET 40 MG PO (21:29)
[2019-09-02] MEDS: INSULIN GLARGINE (*BKC) 100 UNITS/ML 20 UNITS SUB-Q (21:29)
[2019-09-02 23:48] LABS: Glucose Point of Care 139 (65-105)
[2019-09-03] VITALS (27 sets, daily range): BP systolic 102–154; BP diastolic 35–89; PULSE 49–70; RESP 18–24; TEMP 35.7–36.8; O2SAT 96–100
[2019-09-03 05:14] LABS: Hematocrit 22.9 % (37.0-47.0); Hemoglobin 7.2 g/dL (12.0-15.0); Mean Corpuscular HGB Conc 31.4 g/dl (32-36); Mean Corpuscular Hemoglobin 31.2 pg (26-34); Mean Corpuscular Volume 99.1 fl (80-100); Mean Platelet Volume 10.3 fl (7.4-10.4); Platelet Count Result 178 k/mm3 (150-375); Red Blood Count 2.31 M/mm3 (4.2-5.4); Red Cell Distribution Width 13.3 % (11.5-14.5); White Blood Count 7.6 K/mm3 (4.5-10.0)
[2019-09-03 05:26] LABS: Rheumatoid Factor < 8.6 IU/ML (<12)
[2019-09-03 05:27] LABS: Albumin Level 3.2 g/dL (3.5-5.1); Anion Gap 11.7 mmol/L (7-16); Blood Urea Nitrogen 47 mg/dL (7-17); Calcium 8.1 mg/dL (8.4-10.2); Carbon Dioxide 23 mmol/L (22-30); Chloride 104 mmol/L (98-107); Estimated CRCL calculation 22 ml/min; Estimated Glomerular Filt Rate 20; Glucose 104 mg/dL (65-105); Magnesium 2.1 mg/dL (1.6-2.3); Phosphorus 3.9 mg/dL (2.5-4.5); Potassium 4.7 mmol/L (3.4-5.0); Sodium 134 mmol/L (137-145)
[2019-09-03 06:00] LABS: Glucose Point of Care 98 (65-105)
[2019-09-03] MEDS: HYDROCORTISONE ACETATE 25 MG SUPPOSITORY RECTAL ×2 (09:30→20:34)
[2019-09-03] MEDS: amLODIPine BESYLATE 5 MG TABLET PO (09:30)
[2019-09-03] MEDS: ISOSORBIDE DINITRATE 20 MG TABLET 60 MG PO (09:30)
[2019-09-03] MEDS: GABAPENTIN 300 MG CAPSULE PO (09:32)
[2019-09-03] MEDS: RANOLAZINE 500 MG TAB.ER.12H 1000 MG PO ×2 (09:32→20:34)
[2019-09-03] MEDS: TAMSULOSIN HCL 0.4 MG CAPSULE PO (09:32)
[2019-09-03] MEDS: DULoxetine HCL 30 MG CAPSULE.DR PO (09:32)
[2019-09-03] MEDS: PANTOPRAZOLE 40 MG TABLET PO ×2 (09:32→20:35)
[2019-09-03] MEDS: ASPIRIN 81 MG CHEWABLE TABLET PO (09:35)
[2019-09-03] MEDS: ACETAMINOPHEN 325 MG TABLET 650 MG PO (09:35)
--- NOTE | 2019-09-03 10:16 | PM.PNCARD ---
Progress Note: A&P Assessment and Plan (1) Chest pain: Code(s): R07.9 - Chest pain, unspecified Status: Acute Assessment and Plan: She probably has angina for which she was admitted to [facility] and workup including a stress test was performed. Stress test August 09 showed fixed inferior defect but no ischemia. Normal ejection fraction. She has a longstanding history of coronary disease and remote PCI to the RCA. Medical management due to her renal insufficiency . V/Q low probability for PE. Metoprolol was increased to 25 mg b.i.d.. Isosorbide dinitrate increased to 60 mg t.i.d.. No ischemic chest pain today. (2) Coronary artery disease: Code(s): I25.10 - Atherosclerotic heart disease of [place] coronary artery without angina pectoris Status: Chronic Assessment and Plan: Continue Ranexa 1000 mg p.o. b.i.d., aspirin 81 mg p.o. daily, atorvastatin 80 mg daily and other meds as above. (3) Chronic renal insufficiency, stage IV (severe): Code(s): N18.4 - Chronic kidney disease, stage 4 (severe) Status: Acute Assessment and Plan: Most likely chronic. Dr Mendoza following m (4) Hypertension associated with diabetes: Code(s): E11.59 - Type 2 diabetes mellitus with other circulatory complications; I10 - Essential (primary) hypertension Status: Chronic Assessment and Plan: As above. Diabetic management per hospitalist (5) Hyperlipidemia associated with type 2 diabetes mellitus: Code(s): E11.69 - Type 2 diabetes mellitus with other specified complication; E78.5 - Hyperlipidemia, unspecified Status: Acute Assessment and Plan: On statin Additional Plan Will follow with Dr Sanches outpatient Plan discussed with Dr Riddle [id number] 09/03/2019 Time Spent With Patient Time with patient: less than 15 minutes Subjective Date/time seen: 09/03/19 10:16 Interval history: Follow up for : Chest pain, shortness of breath Date of service: 09/03/2019. Subjective: No ischemic sounding chest discomfort today. Does note some mild right lower rib border discomfort when she takes in a deep breath. No discomfort on palpation or change in position. She feels that she is not getting in air although she is aware that her oxygen is flowing. Breathing is improved however. No lightheadedness. Does not like to be turned on to the left side. Review of Systems Review of Systems: All systems reviewed & are unremarkable except as noted in HPI and below Constitutional: Constitutional: Denies fatigue, Denies headache(s) and Denies lethargy Eyes: Eyes: Denies blurry vision ENT: Reports Normal hearing present, Denies headache(s), Denies lip swelling, Denies epistaxis and Denies neck pain Cardiovascular: Cardiovascular: Denies chest pain, Reports leg edema ( Improved) and Reports dyspnea ( improved) Respiratory: Respiratory: Reports dyspnea ( Improved.) Gastrointestinal: Gastrointestinal: Denies abdominal pain Genitourinary: Genitourinary: Denies hematuria and Denies flank pain Musculoskeletal: Musculoskeletal: Denies neck pain Integumentary/Breasts: Skin/Breast: Reports dry skin and Denies pruritus Neurologic: Reports Normal hearing present, Denies confusion and Denies headache(s) Psychiatric: Psychiatric: Denies anxiety and Denies confusion Endocrine: Endocrine: Denies fatigue and Denies flushing Hematologic/Lymphatic: Hematologic/Lymphatic: Denies easy bleeding Allergic/Immunologic: Allergic/Immunologic: Denies GI upset with certain foods and Denies lip swelling Exam Narrative: Exam Narrative: Lying relatively flat in bed. No distress. Const: General: cooperative, comfortable and no acute distress; No confusion Nutritional Appearance
[2019-09-03] MEDS: METOPROLOL TARTRATE 25 MG TABLET PO ×2 (10:23→20:35)
[2019-09-03 12:34] LABS: Glucose Point of Care 127 (65-105)
[2019-09-03 13:04] LABS: Hematocrit 21.4 % (37.0-47.0)
[2019-09-03 13:06] LABS: Hemoglobin 6.8 g/dL (12.0-15.0)
--- NOTE | 2019-09-03 13:15 | PM.IMPN ---
Progress Note: A&P Assessment and Plan (1) AMS (altered mental status): Code(s): R41.82 - Altered mental status, unspecified Status: Acute Assessment and Plan: Acute onset of AMS. Carotid does show right ICA at >70%. MRI yesterday did not show any acute CVA. Will check ABG and stat CXR. Check stat CT brain. NPO. (2) Anemia: Code(s): D64.9 - Anemia, unspecified Status: Acute Assessment and Plan: Hgb dropped to 6.8. No evidence of acute blood loss. Iron and B12 levels pending. Will transfuse one unit PRBC. Serial HH once blood complete. Hold ASA for now. Check stool guaiac (3) Chest pain: Code(s): R07.9 - Chest pain, unspecified Status: Acute Assessment and Plan: Patient brought to ER with complaint of CP. Patient has hx of CAD. Trop negative x 3. EKG showing LBBB (chronic). Doppler negative for DVT RLE. VQ is low probability. HRCT showing CMG with congestion and patchy right bilateral edema and/or pneumonia. CT of the abdomen not showing any findings to determine etiology of her CP. Echo showing EF 50-55%, Grade II DD with HK inferior wall and severe pulmonary HTN and moderate MR. Suspect she has chronic angina. Ranexa and Isordil adjusted. Monitor on tele. Appreciate Cardiology input. (4) Right sided weakness: Code(s): R53.1 - Weakness Status: Acute Assessment and Plan: She has chronic weakness that she states is related to neuropathy. Her RUE weakness related to trauma. She had MRI brain 09/01 showing no acute findings. No old CVAs noted. Carotid doppler 09/01 showing >70% stenosis right ICA. No plans for CTA to verify severity due to renal function. (5) DM2 (diabetes mellitus, type 2): Code(s): E11.9 - Type 2 diabetes mellitus without complications Status: Chronic Assessment and Plan: A1c 5.3. Glucose reviewed on 09/03/19. Glucose normal when she had the AMS. Patient on Lantus and Glipizide at home but appears to tightly controlled so glipizide stopped. She is being monitored with Accu-Cheks AC and HS. Hold lantus since being NPO. (6) Chronic respiratory failure with hypoxia: Code(s): J96.11 - Chronic respiratory failure with hypoxia Status: Chronic Assessment and Plan: It is listed that patient is on oxygen at 2 L per nasal cannula chronically but patient denies she is on O2 at home. The patient does have chronic bronchitis with chronic cough. She is currently on 3L NC. She has scheduled nebulizer treatments. Wean O2 as tolerated. Suspect she probably has underlying NANCY given the pulm HTN. Apnea link once she down or off her O2. (7) Anxiety and depression: Code(s): F41.9 - Anxiety disorder, unspecified; F32.9 - Major depressive disorder, single episode, unspecified Status: Chronic Assessment and Plan: Mood stable. Continue her scheduled Cymbalta and paroxetine. Alprazolam available as needed and last dose was last night. (8) Hyperlipidemia associated with type 2 diabetes mellitus: Code(s): E11.69 - Type 2 diabetes mellitus with other specified complication; E78.5 - Hyperlipidemia, unspecified Status: Acute Assessment and Plan: LFTs okay. Continue Lipitor. (9) Hypertension associated with diabetes: Code(s): E11.59 - Type 2 diabetes mellitus with other circulatory complications; I10 - Essential (primary) hypertension Status: Chronic Assessment and Plan: BP reviewed on 09/03/19. BP well controlled. Continue Norvasc, Metoprolol and Isordil. Stop Norvasc if BP becomes soft. (10) Chronic renal insufficiency, stage IV (severe): Code(s): N18.4 - Chronic kidney disease, stage 4 (severe) Status: Acute Assessment and Plan: Patient with known chronic renal failure. Cr 2.4 on admission. No old lab values here to compare but old labs from [facility]'s showing Cr 2.2-2.3 earlier thi
[2019-09-03 13:30] LABS: Alveolar/Arterial O2 Gradient 45.3 mmHg; Base Excess ABG -5.3 mEq/l (+/-2.0); HCO3 ABG 21.4 mEq/l (22.0-26.0); Oxygen Content ABG 10.2 %vol (16.0-22.0); Oxygen Saturation ABG 94.5 % (95.0-100.0); Oxyhemoglobin 93.9 % THb (90.0-100.0); PCO2 ABG 48.5 mmHg (35.0-45.0); PO2 ABG 82.6 mmHg (80.0-100.0); PO2 FiO2 Ratio Arterial Blood 3.18 %
[2019-09-03 13:32] LABS: Device NASAL CANNULA; Fractional Inspired Oxygen 30 %; Liters per Minute 2.5 LPM; Site Drawn LEFT BRACHIAL; Total Hemoglobin 7.6 g/dL (12.0-18.0); pH ABG 7.263 (7.350-7.450)
[2019-09-03 13:42] LABS: Iron 26 ug/dL (37-170)
[2019-09-03 13:45] LABS: Folic Acid 13.7 ng/mL (2.76->20)
[2019-09-03 13:51] LABS: Percent Iron Saturation 13 % (20-50)
[2019-09-03 14:06] LABS: Basophils Percent Auto 0.4 % (0.2-1.2); Eosinophils Absolute Auto 0.3 K/mm3 (0-0.3); Eosinophils Percent Auto 4.6 % (0-4.4); Hematocrit 21.7 % (37.0-47.0); Immature Granulocyte Absolute 0.02 K/mm3 (0.00-0.031); Immature Granulocyte Percent A 0.3 % (0-0.5); Lymphocytes Absolute Auto 0.68 K/mm3 (0.9-3.2); Lymphocytes Percent Auto 9.4 % (18.3-44.2); Mean Corpuscular HGB Conc 31.3 g/dl (32-36); Mean Corpuscular Hemoglobin 31.2 pg (26-34); Mean Corpuscular Volume 99.5 fl (80-100); Mean Platelet Volume 9.6 fl (7.4-10.4); Monocytes Absolute Auto 0.5 K/mm3 (0.1-0.6); Monocytes Percent Auto 7.2 % (2.6-8.5); Neutrophils Absolute Auto 5.6 K/mm3 (1.3-6.7); Neutrophils Percent Auto 78.1 % (45.5-73.1); Platelet Count Result 171 k/mm3 (150-375); Red Blood Count 2.18 M/mm3 (4.2-5.4); Red Cell Distribution Width 13.2 % (11.5-14.5); White Blood Count 7.2 K/mm3 (4.5-10.0)
[2019-09-03 14:12] LABS: Hemoglobin 6.8 g/dL (12.0-15.0)
--- NOTE | 2019-09-03 14:20 | PC.NURSE ---
Multiple attempts made to reach Niki De La Paz who is listed as the granddaughter and POA for the patient with a phone number of [phone]. Calls were placed at [phone], [phone], and [phone]. Message left to call the unit back. Phone calls made to try and obtain blood transfusion consent. Dr. Cobian called and notified that POA is unable to be reached for consent. He decided to proceed with the blood transfusion and do emergent consent.
[2019-09-03 14:21] LABS: Alanine Aminotransferase 10 U/L (4-35); Albumin Level 3.1 g/dL (3.5-5.1); Alkaline Phosphatase 64 U/L (38-126); Anion Gap 13.8 mmol/L (7-16); Aspartate Amino Transferase 13 U/L (14-36); Bilirubin,Total 0.2 mg/dL (0.2-1.3); Blood Urea Nitrogen 45 mg/dL (7-17); Carbon Dioxide 22 mmol/L (22-30); Chloride 103 mmol/L (98-107); Estimated CRCL calculation 21 ml/min; Estimated Glomerular Filt Rate 19; Glucose 132 mg/dL (65-105); Lactic Acid Reflex < 0.5 mmol/L (0.7-2.1); Magnesium 2.2 mg/dL (1.6-2.3); Phosphorus 3.8 mg/dL (2.5-4.5); Potassium 4.8 mmol/L (3.4-5.0); Sodium 134 mmol/L (137-145)
[2019-09-03 15:04] LABS: SARS-CoV-2 RNA PCR Negative
--- NOTE | 2019-09-03 15:08 | PM.PNNEP ---
Progress Note: A&P Assessment and Plan (1) Abnormal results of kidney function studies: Code(s): R94.4 - Abnormal results of kidney function studies Status: Acute Assessment and Plan: the patient has an elevated creatinine. This has remained stable over 24 hours. Old records came in showed the creatinine is stable. Her ultrasound shows echogenic kidneys and 1 of them is small , consistent with chronic kidney disease. Evaluation pending (2) Coronary artery disease: Code(s): I25.10 - Atherosclerotic heart disease of [place] coronary artery without angina pectoris Status: Chronic Assessment and Plan: Echocardiogram shows diastolic dysfunction and pulmonary hypertension. She is not having chest pain now. further cardiac evaluation as an outpatient per Cardiology (3) DM2 (diabetes mellitus, type 2): Code(s): E11.9 - Type 2 diabetes mellitus without complications Status: Chronic Assessment and Plan: the patient has diabetes. She is on sliding scale insulin. (4) Hypertension associated with diabetes: Code(s): E11.59 - Type 2 diabetes mellitus with other circulatory complications; I10 - Essential (primary) hypertension Status: Chronic Assessment and Plan: Her blood pressure is variable. Currently it is good with the latest adjustments. She is on amlodipine and metoprolol. Her pulse is Sixty-two (5) Hyperlipidemia associated with type 2 diabetes mellitus: Code(s): E11.69 - Type 2 diabetes mellitus with other specified complication; E78.5 - Hyperlipidemia, unspecified Status: Acute Assessment and Plan: She is on atorvastatin (6) Abdominal pain: Code(s): R10.9 - Unspecified abdominal pain Status: Acute Assessment and Plan: etiology of the abdominal pain is not clear. CT scan is negative. She has had a cholecystectomy. Her lipase is normal. 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 She says that her speech is different from the way it was before. MRI and carotid Dopplers are unremarkable. Patient had an episode Of unresponsiveness. Discussed with Dr. Cobian.. Subjective Date/time seen: 09/03/19 15:08 Interval history: Patient is awake. She had some nausea this morning. No belly pain. No chest pain or shortness of breath she had an episode of unresponsiveness this morning. CT brain and ABGs as well as labs were checked. Review of Systems Cardiovascular: Cardiovascular: Reports no additional cardiovascular complaints Respiratory: Respiratory: Reports no additional respiratory complaints Gastrointestinal: Gastrointestinal: Reports no additional gastrointestinal complaints Genitourinary: Genitourinary: Reports no additional female genitourinary complaints Exam Narrative: Exam Narrative: WDWN in NAD skin no rash head ncat lungs clear cor reg no rub abd BS+ nontender and soft ext trace edema. Objective Data Vital Signs Vital Signs: Vital Signs - 24 hr 09/02/19 16:00 09/02/19 17:19 09/02/19 18:00 Temperature 35.8 C L Pulse Rate 62 62 60 Respiratory Rate 20 Blood Pressure 144/54 H Pulse Oximetry 99 09/02/19 20:00 09/02/19 21:28 09/02/19 22:00 Temperature 36.4 C L Pulse Rate 61 67 55 L Respiratory Rate 18 Blood Pressure 133/46 L Pulse Oximetry 93 09/02/19 23:45 09/03/19 00:00 09/03/19 02:00 Temperature 36.7 C Pulse Rate 112 H 56 L 62 Respiratory Rate 22 H Blood Pressure 116/37 L Pulse Oximetry 100 09/03/19 03:31 09/03/19 04:00 09/03/19 06:00 Temperature 36.6 C Pulse Rate 64 66 70 Respiratory Rate 20 Blood Pressure 102/81 Pulse Oximetry 100 09/03/19 08:00 09/03/19 10:23 09/03/19 10:36 Temperature 36.8 C Pulse Rate 70 70 66 Respiratory Rate 20 Blood Pressure 154/56 H
[2019-09-03] MEDS: IPRATROPIUM BR 0.02% INH SOLN 0.5 MG/2.5 ML VIAL INHALATION ×2 (15:42→20:45)
[2019-09-03] MEDS: ALBUTEROL SULFATE NEB 2.5 MG/0.5 ML INH INHALATION ×2 (15:42→20:45)
[2019-09-03] MEDS: SODIUM CHLORIDE 0.9% IV 250 ML 30 ML IV CONT (18:01)
[2019-09-03 18:03] LABS: Glucose Point of Care 130 (65-105)
[2019-09-03] MEDS: ATORVASTATIN 40 MG TABLET 80 MG PO (20:34)
[2019-09-03] MEDS: PARoxetine 20 MG TABLET 40 MG PO (20:35)
[2019-09-03] MEDS: FUROSEMIDE INJ 40 MG/4 ML VIAL IV PUSH (21:47)
[2019-09-03 23:11] LABS: Hematocrit 26.2 % (37.0-47.0); Hemoglobin 8.4 g/dL (12.0-15.0)
[2019-09-04] VITALS (28 sets, daily range): BP systolic 105–145; BP diastolic 45–65; PULSE 54–75; RESP 18–22; TEMP 35.6–36.5; O2SAT 96–100
[2019-09-04 00:04] LABS: Glucose Point of Care 114 (65-105)
[2019-09-04] MEDS: ALBUTEROL SULFATE NEB 2.5 MG/0.5 ML INH INHALATION ×4 (01:20→20:28)
[2019-09-04] MEDS: IPRATROPIUM BR 0.02% INH SOLN 0.5 MG/2.5 ML VIAL INHALATION ×4 (01:20→20:27)
[2019-09-04 05:05] LABS: Hematocrit 26.6 % (37.0-47.0); Hemoglobin 8.5 g/dL (12.0-15.0); Mean Corpuscular Hemoglobin 31.3 pg (26-34); Mean Corpuscular Volume 97.8 fl (80-100); Mean Platelet Volume 10.4 fl (7.4-10.4); Platelet Count Result 192 k/mm3 (150-375); Red Blood Count 2.72 M/mm3 (4.2-5.4); Red Cell Distribution Width 13.7 % (11.5-14.5); White Blood Count 5.6 K/mm3 (4.5-10.0)
[2019-09-04 05:16] LABS: Albumin Level 3.5 g/dL (3.5-5.1); Anion Gap 13.9 mmol/L (7-16); Blood Urea Nitrogen 48 mg/dL (7-17); Calcium 8.3 mg/dL (8.4-10.2); Carbon Dioxide 23 mmol/L (22-30); Chloride 103 mmol/L (98-107); Estimated CRCL calculation 22 ml/min; Estimated Glomerular Filt Rate 19; Glucose 108 mg/dL (65-105); Magnesium 2.3 mg/dL (1.6-2.3); Phosphorus 3.9 mg/dL (2.5-4.5); Potassium 4.9 mmol/L (3.4-5.0); Sodium 135 mmol/L (137-145)
[2019-09-04 05:43] LABS: Glucose Point of Care 106 (65-105)
--- NOTE | 2019-09-04 08:00 | PM.PNPUL ---
Progress Note: A&P Assessment and Plan (1) CHF (congestive heart failure): Code(s): I50.9 - Heart failure, unspecified Status: Acute Assessment and Plan: Will give Lasix 40 mg IV X 1 this morning avoid IVF, monitor exam (2) Pneumonia: Code(s): J18.9 - Pneumonia, unspecified organism Status: Acute Assessment and Plan: - continue Ceftriaxone and Azithromycin - if does not improve clinically over next 48 hours consider broadining coverage - SARS-CoV-2 negative (3) COPD (chronic obstructive pulmonary disease): Code(s): J44.9 - Chronic obstructive pulmonary disease, unspecified Status: Acute Assessment and Plan: - Will start prednisone 30 mg PO OD for 5 days - continue Albuterol and Atrovent Nebs Q6h - continue oxygen therapy at 2 liters per NC - needs PT and daily mobilization Subjective Date/time seen: 09/04/19 08:00 Interval history: Had episode of confusion/mental status changes. Unclear if this was a TIA or some other event. She feels that her mentation is back to normal today but complains of dyspnea, no chest pain. CT chest shows signs of pneumonia and and CHF. SARS-CoV-2 was negative. She does admit to greenish sputum production sometimes. no fever, Review of Systems Review of Systems: All systems reviewed & are unremarkable except as noted in HPI and below Exam Const: General: comfortable and no acute distress Eyes: General: appearance normal, both eyes and all related structures Neck: Neck: supple and no JVD Resp: Auscultation: crackles (fine inspiratory crackles bilaterally) GI: GI Palp: Yes Soft to palpation Auscultation: normal bowel sounds Skin: General skin exam: normal color Neuro: Speech: normal speech Extrem: General: edema Right lower extremity: edema (asymetric edema with R>L is chronic according to patient ) Objective Data Vital Signs Vital Signs: Vital Signs - 24 hr 09/03/19 10:23 09/03/19 10:36 09/03/19 12:00 Temperature 36.8 C Pulse Rate 70 66 59 L Respiratory Rate 22 H Blood Pressure 114/89 Pulse Oximetry 99 09/03/19 14:00 09/03/19 15:42 09/03/19 15:50 Temperature Pulse Rate 49 L 52 L 56 L Respiratory Rate 24 H 22 H Blood Pressure Pulse Oximetry 97 09/03/19 15:58 09/03/19 16:00 09/03/19 18:00 Temperature 36.1 C L Pulse Rate 52 L 52 L 56 L Respiratory Rate 22 H Blood Pressure 116/59 L Pulse Oximetry 99 09/03/19 18:07 09/03/19 18:23 09/03/19 19:23 Temperature 36.3 C L 35.8 C L 35.7 C L Pulse Rate 55 L 56 L 60 Respiratory Rate 20 18 18 Blood Pressure 137/44 L 141/35 H 143/56 H Pulse Oximetry 98 97 96 09/03/19 20:00 09/03/19 20:23 09/03/19 20:37 Temperature 35.7 C L 35.8 C L Pulse Rate 60 61 59 L Respiratory Rate 18 18 22 H Blood Pressure 143/56 H 140/52 L Pulse Oximetry 96 100 09/03/19 20:41 09/03/19 20:45 09/03/19 21:23 Temperature 35.8 C L Pulse Rate 59 L 55 L Respiratory Rate 22 H 20 Blood Pressure 124/56 L Pulse Oximetry 96 97 09/03/19 21:43 09/03/19 21:54 09/03/19 23:45 Temperature 35.8 C L 35.9 C L Pulse Rate 53 L 56 L 55 L Respiratory Rate 18 18 Blood Pressure 110/61 149/52 H Pulse Oximetry 99 98 09/04/19 00:00 09/04/19 01:21 09/04/19 01:33 Temperature Pulse Rate 54 L 54 L 54 L Respiratory Rate 20 20 Blood Pressure Pulse Oximetry 09/04/19 02:00 09/04/19 04:00 09/04/19 04:20 Temperature 36.1 C L Pulse Rate 58 L 59 L 59 L Respiratory Rate 20 Blood Pressure 105/65 Pulse Oximetry 97 09/04/19 06:00 Temperature Pulse Rate 59 L Respiratory Rate Blood Pressure Pulse Oximetry Intake/Output Intake/Output: Intake & Output 09/01/19 09/02/19 09/03/19 09/04/19 23:59 23:59 23:59 23:59 Intake Total 600 2440 1090 Output Total 650 650 700 Balance -50 2440 440 -700 Meds/Results Medications: Active Medications Generic Name Dose Route Start Last Admin Trade Name Freq PRN Reason S
[2019-09-04] MEDS: FUROSEMIDE INJ 40 MG/4 ML VIAL IV PUSH (08:51)
[2019-09-04] MEDS: predniSONE 20 MG, predniSONE 10 MG 30 MG PO (08:51)
[2019-09-04] MEDS: amLODIPine BESYLATE 5 MG TABLET PO (08:52)
[2019-09-04] MEDS: DULoxetine HCL 30 MG CAPSULE.DR PO (08:52)
[2019-09-04] MEDS: GABAPENTIN 300 MG CAPSULE PO ×3 (08:53→16:44)
[2019-09-04] MEDS: PANTOPRAZOLE 40 MG TABLET PO ×2 (08:53→21:23)
[2019-09-04] MEDS: METOPROLOL TARTRATE 25 MG TABLET PO ×2 (08:53→21:22)
[2019-09-04] MEDS: ISOSORBIDE DINITRATE 20 MG TABLET 60 MG PO ×3 (08:53→17:08)
[2019-09-04] MEDS: RANOLAZINE 500 MG TAB.ER.12H 1000 MG PO ×2 (08:54→21:22)
[2019-09-04] MEDS: TAMSULOSIN HCL 0.4 MG CAPSULE PO (08:54)
--- NOTE | 2019-09-04 10:22 | PCSTNOTE ---
Bedside swallow evaluation completed. Please see ST evaluation for results and recommendations.
[2019-09-04 12:08] LABS: Glucose Point of Care 165 (65-105)
--- NOTE | 2019-09-04 14:10 | PM.IMPN ---
Progress Note: A&P Assessment and Plan (1) AMS (altered mental status): Code(s): R41.82 - Altered mental status, unspecified Status: Acute Assessment and Plan: Acute onset of AMS on 09/02. Carotid does show right ICA at >70%. MRI did not show any acute CVA. ABG 7.263/48/[address] brain showing no acute findings. CXR showing diffuse lung disease worst in the mid and lower lung zones consistent with pneumonia and/or pulmonary edema and/or atelectasis. Patient actually on less O2 now. IV fluids stopped and Lasix given. Labs showing no significant changes; CRP 14 but better than on admisison. Lasix given again today. Symptoms resolved. Seizure? TIA? Neuro consult. (2) Anemia: Code(s): D64.9 - Anemia, unspecified Status: Acute Assessment and Plan: Hgb dropped to 6.8. No evidence of acute blood loss. Iron levels consistent with anemia of chronic disease probably related to her CKD. B12 level okay. She was transfused one unit PRBC and given Lasix IV once. Hgb stable in the 8 range. Continue to moniotr. (3) Chest pain: Code(s): R07.9 - Chest pain, unspecified Status: Acute Assessment and Plan: Patient brought to ER with complaint of CP. Patient has hx of CAD. Trop negative x 3. EKG showing LBBB (chronic). Doppler negative for DVT RLE. VQ is low probability. HRCT showing CMG with congestion and patchy right bilateral edema and/or pneumonia (PNA felt less likely). CT of the abdomen not showing any findings to determine etiology of her CP. Echo showing EF 50-55%, Grade II DD with HK inferior wall and severe pulmonary HTN and moderate MR. Suspect she has chronic angina. Ranexa and Isordil adjusted. Monitor on tele. Appreciate Cardiology input. (4) Right sided weakness: Code(s): R53.1 - Weakness Status: Acute Assessment and Plan: She has chronic weakness that she states is related to neuropathy. Her RUE weakness related to trauma. She had MRI brain 09/01 showing no acute findings. No old CVAs noted. Carotid doppler 09/01 showing >70% stenosis right ICA. No plans for CTA to verify severity due to renal function. (5) DM2 (diabetes mellitus, type 2): Code(s): E11.9 - Type 2 diabetes mellitus without complications Status: Chronic Assessment and Plan: A1c 5.3. Glucose reviewed on 09/04/19. Glucose well controlled. Patient on Lantus and Glipizide at home but appears to tightly controlled so glipizide stopped. She is being monitored with Accu-Cheks AC and HS. Resume lantus (6) Chronic respiratory failure with hypoxia: Code(s): J96.11 - Chronic respiratory failure with hypoxia Status: Chronic Assessment and Plan: It is listed that patient is on oxygen at 2 L per nasal cannula chronically but patient denies she is on O2 at home. The patient does have chronic bronchitis with chronic cough. She remains on supplemental O2. She has scheduled nebulizer treatments. Wean O2 as tolerated. Suspect she probably has underlying NANCY given the pulm HTN. Apnea link tonight. (7) Anxiety and depression: Code(s): F41.9 - Anxiety disorder, unspecified; F32.9 - Major depressive disorder, single episode, unspecified Status: Chronic Assessment and Plan: Mood stable. Continue her scheduled Cymbalta and paroxetine. Alprazolam available as needed. (8) Hyperlipidemia associated with type 2 diabetes mellitus: Code(s): E11.69 - Type 2 diabetes mellitus with other specified complication; E78.5 - Hyperlipidemia, unspecified Status: Acute Assessment and Plan: LFTs okay. Continue Lipitor. (9) Hypertension associated with diabetes: Code(s): E11.59 - Type 2 diabetes mellitus with other circulatory complications; I10 - Essential (primary) hypertension Status: Chronic Assessment and Plan: BP reviewed on 09/04/19. BP well controlled. Continue N
--- NOTE | 2019-09-04 15:34 | PM.PNNEP ---
Progress Note: A&P Assessment and Plan (1) Abnormal results of kidney function studies: Code(s): R94.4 - Abnormal results of kidney function studies Status: Acute Assessment and Plan: the patient has an elevated creatinine. This has remained stable over 24 hours. Her ultrasound shows echogenic kidneys and 1 of them is small , consistent with chronic kidney disease. Evaluation pending (2) Coronary artery disease: Code(s): I25.10 - Atherosclerotic heart disease of [place] coronary artery without angina pectoris Status: Chronic Assessment and Plan: Echocardiogram shows diastolic dysfunction and pulmonary hypertension. She is not having chest pain now. cardiac evaluation by Cardiology here and with Dr. Sanches. Since her creatinine is stable she could possibly get by with a cardiac catheterization without LV injection. she is at increased risk for nephrotoxicity. We discussed at length. There is a risk with the dye but there is also a risk of heart disease without doing the catheterization. 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 (3) DM2 (diabetes mellitus, type 2): Code(s): E11.9 - Type 2 diabetes mellitus without complications Status: Chronic Assessment and Plan: the patient has diabetes. She is on sliding scale insulin. (4) Hypertension associated with diabetes: Code(s): E11.59 - Type 2 diabetes mellitus with other circulatory complications; I10 - Essential (primary) hypertension Status: Chronic Assessment and Plan: Her blood pressure is variable. Currently it is good with the latest adjustments. She is on amlodipine and metoprolol. Her pulse is 60 (5) Hyperlipidemia associated with type 2 diabetes mellitus: Code(s): E11.69 - Type 2 diabetes mellitus with other specified complication; E78.5 - Hyperlipidemia, unspecified Status: Acute Assessment and Plan: She is on atorvastatin (6) Abdominal pain: Code(s): R10.9 - Unspecified abdominal pain Status: Acute Assessment and Plan: etiology of the abdominal pain is not clear. CT scan is negative. She has had a cholecystectomy. Her lipase is normal. Eating okay now. 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 She says that her speech is different from the way it was before. MRI and carotid Dopplers are unremarkable. Patient had an episode Of unresponsiveness. Discussed with Dr. Cobian.. Subjective Date/time seen: 09/04/19 15:34 Interval history: Patient is awake. She had some nausea this morning. No belly pain. No chest pain. She has had some shortness of breath occasionally No more unresponsive spells. Review of Systems Cardiovascular: Cardiovascular: Reports no additional cardiovascular complaints Respiratory: Respiratory: Reports no additional respiratory complaints Gastrointestinal: Gastrointestinal: Reports no additional gastrointestinal complaints Genitourinary: Genitourinary: Reports no additional female genitourinary complaints Exam Narrative: Exam Narrative: WDWN in NAD skin no rash head ncat lungs clear cor reg no rub abd BS+ nontender and soft ext no edema. Objective Data Vital Signs Vital Signs: Vital Signs - 24 hr 09/03/19 15:42 09/03/19 15:50 09/03/19 15:58 Temperature 36.1 C L Pulse Rate 52 L 56 L 52 L Respiratory Rate 24 H 22 H 22 H Blood Pressure 116/59 L Pulse Oximetry 97 99 09/03/19 16:00 09/03/19 18:00 09/03/19 18:07 Temperature 36.3 C L Pulse Rate 52 L 56 L 55 L Respiratory Rate 20 Blood Pressure 137/44 L Pulse Oximetry 98 09/03/19 18:23 09/03/19 19:23 09/03/19 20:00 Temperature 35.8 C L 35.7 C L 35.7 C L Pulse Rate 56 L 60 60 Respiratory Rate 18 18 18 Blood Pressure 141/35 H 143/56 H 143/
--- NOTE | 2019-09-04 15:59 | WPDNEURCNPN ---
Assessment and Plan Assessment and plan (1) COPD (chronic obstructive pulmonary disease): Code(s): J44.9 - Chronic obstructive pulmonary disease, unspecified Status: Acute (2) Pneumonia: Code(s): J18.9 - Pneumonia, unspecified organism Status: Acute (3) CHF (congestive heart failure): Code(s): I50.9 - Heart failure, unspecified Status: Acute (4) AMS (altered mental status): Code(s): R41.82 - Altered mental status, unspecified Status: Acute (5) Anemia: Code(s): D64.9 - Anemia, unspecified Status: Acute (6) Interstitial lung disease: Code(s): J84.9 - Interstitial pulmonary disease, unspecified Status: Acute (7) Right sided weakness: Code(s): R53.1 - Weakness Status: Acute (8) Diabetic neuropathy: Code(s): E11.40 - Type 2 diabetes mellitus with diabetic neuropathy, unspecified Status: Chronic (9) Chronic back pain: Code(s): M54.9 - Dorsalgia, unspecified; G89.29 - Other chronic pain Status: Chronic (10) DM2 (diabetes mellitus, type 2): Code(s): E11.9 - Type 2 diabetes mellitus without complications Status: Chronic (11) Chronic respiratory failure with hypoxia: Code(s): J96.11 - Chronic respiratory failure with hypoxia Status: Chronic (12) Anxiety and depression: Code(s): F41.9 - Anxiety disorder, unspecified; F32.9 - Major depressive disorder, single episode, unspecified Status: Chronic (13) Hyperlipidemia associated with type 2 diabetes mellitus: Code(s): E11.69 - Type 2 diabetes mellitus with other specified complication; E78.5 - Hyperlipidemia, unspecified Status: Acute (14) Hypertension associated with diabetes: Code(s): E11.59 - Type 2 diabetes mellitus with other circulatory complications; I10 - Essential (primary) hypertension Status: Chronic (15) Chronic renal insufficiency, stage IV (severe): Code(s): N18.4 - Chronic kidney disease, stage 4 (severe) Status: Acute (16) Coronary artery disease: Code(s): I25.10 - Atherosclerotic heart disease of [place] coronary artery without angina pectoris Status: Chronic (17) Chest pain: Code(s): R07.9 - Chest pain, unspecified Status: Acute (18) Carotid stenosis: Code(s): I65.29 - Occlusion and stenosis of unspecified carotid artery Status: Acute (19) Nonspecific paroxysmal spell: Code(s): R40.4 - Transient alteration of awareness Status: Acute Additional Plan I have recommended to have a MRA of the neck and put her on lamotrigine presume that these are partial seizure Consult date: 09/04/19 Time Seen: 15:00 HPI: Nicole Gross is a 74 year old female who has had at least couple of episodes of loss of consciousness which lasted more than desirable and then get back to her usual self at the time of this examination the patient was awake alert followed all commands able to move her upper extremities quite well denies any headache nausea vomiting chest pain or shortness of breath she has been in the long term for quite some time and has not been able to walk for several years and essentially paraplegic in the lower extremities has a chronic renal disease Review of Systems Review of Systems: All systems reviewed & are unremarkable except as noted in HPI and below PMFSH Past Medical History Medical History Abdominal pain Abnormal results of kidney function studies Anxiety and depression Chronic back pain Chronic bronchitis Chronic renal insufficiency, stage IV (severe) Chronic respiratory failure with hypoxia chronically on 2 L per nasal cannula. Coronary artery disease Wanted coronary artery stent and stated she is supposed to get 2 more. last catheterization about 5 years ago Diabetic neuropathy lower extremity DM2 (diabetes mellitus, type 2) insulin-dependent Hemorrhoids Hy
[2019-09-04] MEDS: INSULIN ASPART (*BKC) 100 UNITS/ML SUB-Q ×2 (17:08→21:23)
[2019-09-04] MEDS: ALPRAZolam 0.5 MG TABLET PO ×2 (17:13→23:47)
[2019-09-04] MEDS: ACETAMINOPHEN 325 MG TABLET 650 MG PO ×2 (17:13→23:47)
[2019-09-04] MEDS: INSULIN GLARGINE (*BKC) 100 UNITS/ML 20 UNITS SUB-Q (19:13)
[2019-09-04] MEDS: methylPREDNISolone SOD SUCC 125 MG VIAL 60 MG IV PUSH (19:14)
[2019-09-04 20:37] LABS: Glucose Point of Care 259 (65-105)
[2019-09-04 20:55] LABS: Glucose Point of Care 299 (65-105)
[2019-09-04] MEDS: PARoxetine 20 MG TABLET 40 MG PO (21:22)
[2019-09-04] MEDS: lamoTRIgine 25 MG TABLET PO (21:22)
[2019-09-04] MEDS: ATORVASTATIN 40 MG TABLET 80 MG PO (21:22)
[2019-09-05] VITALS (25 sets, daily range): BP systolic 133–163; BP diastolic 51–78; PULSE 62–99; RESP 16–22; TEMP 35.7–36.1; O2SAT 96–100
[2019-09-05 05:36] LABS: Hematocrit 26.9 % (37.0-47.0); Hemoglobin 8.6 g/dL (12.0-15.0); Mean Corpuscular Hemoglobin 30.9 pg (26-34); Mean Corpuscular Volume 96.8 fl (80-100); Mean Platelet Volume 10.4 fl (7.4-10.4); Platelet Count Result 227 k/mm3 (150-375); Red Blood Count 2.78 M/mm3 (4.2-5.4); Red Cell Distribution Width 13.2 % (11.5-14.5); White Blood Count 3.8 K/mm3 (4.5-10.0)
[2019-09-05 05:47] LABS: Albumin Level 3.6 g/dL (3.5-5.1); Anion Gap 12.8 mmol/L (7-16); Blood Urea Nitrogen 49 mg/dL (7-17); Calcium 8.4 mg/dL (8.4-10.2); Carbon Dioxide 23 mmol/L (22-30); Chloride 100 mmol/L (98-107); Estimated CRCL calculation 23 ml/min; Estimated Glomerular Filt Rate 20; Glucose 283 mg/dL (65-105); Magnesium 2.1 mg/dL (1.6-2.3); Potassium 4.8 mmol/L (3.4-5.0); Sodium 131 mmol/L (137-145)
[2019-09-05 08:15] LABS: Glucose Point of Care 257 (65-105)
[2019-09-05] MEDS: ALBUTEROL SULFATE NEB 2.5 MG/0.5 ML INH INHALATION ×3 (08:45→20:11)
[2019-09-05] MEDS: IPRATROPIUM BR 0.02% INH SOLN 0.5 MG/2.5 ML VIAL INHALATION ×3 (08:45→20:11)
[2019-09-05] MEDS: GABAPENTIN 300 MG CAPSULE PO ×3 (09:14→16:43)
[2019-09-05] MEDS: TIZANIDINE HCL 2 MG TABLET PO (09:14)
[2019-09-05] MEDS: METOPROLOL TARTRATE 25 MG TABLET PO ×2 (09:15→20:27)
[2019-09-05] MEDS: RANOLAZINE 500 MG TAB.ER.12H 1000 MG PO ×2 (09:15→20:28)
[2019-09-05] MEDS: ISOSORBIDE DINITRATE 20 MG TABLET 60 MG PO ×3 (09:16→16:44)
[2019-09-05] MEDS: DULoxetine HCL 30 MG CAPSULE.DR PO (09:17)
[2019-09-05] MEDS: predniSONE 20 MG, predniSONE 10 MG 30 MG PO (09:17)
[2019-09-05] MEDS: PANTOPRAZOLE 40 MG TABLET PO ×2 (09:18→20:28)
[2019-09-05] MEDS: lamoTRIgine 25 MG TABLET PO ×2 (09:18→20:27)
[2019-09-05] MEDS: TAMSULOSIN HCL 0.4 MG CAPSULE PO (09:18)
[2019-09-05] MEDS: amLODIPine BESYLATE 5 MG TABLET PO (09:18)
[2019-09-05] MEDS: INSULIN ASPART (*BKC) 100 UNITS/ML SUB-Q ×2 (09:20→13:36)
[2019-09-05] MEDS: ALPRAZolam 0.5 MG TABLET PO ×2 (09:23→16:43)
--- NOTE | 2019-09-05 12:11 | PM.PNPUL ---
Progress Note: A&P Assessment and Plan (1) CHF (congestive heart failure): Code(s): I50.9 - Heart failure, unspecified Status: Acute Assessment and Plan: - recommend daily diuretics. (2) Pneumonia: Code(s): J18.9 - Pneumonia, unspecified organism Status: Acute Assessment and Plan: - continue Ceftriaxone and Azithromycin for total of 7 and 5 days respectively - if does not improve clinically over next 48 hours consider broadening coverage - SARS-CoV-2 negative (3) COPD (chronic obstructive pulmonary disease): Code(s): J44.9 - Chronic obstructive pulmonary disease, unspecified Status: Acute Assessment and Plan: - continue prednisone 30 mg PO OD for 5 days total - continue Albuterol and Atrovent Nebs Q6h - continue oxygen therapy at 2 liters per NC - needs PT and daily mobilization Subjective Date/time seen: 09/05/19 12:11 Interval history: Feeling slightly better but still has panic attacks Review of Systems Review of Systems: All systems reviewed & are unremarkable except as noted in HPI and below Exam Const: General: comfortable and no acute distress Eyes: General: appearance normal, both eyes and all related structures Neck: Neck: supple and no JVD Resp: Auscultation: crackles (fine inspiratory crackles bilaterally) GI: GI Palp: Yes Soft to palpation Auscultation: normal bowel sounds Skin: General skin exam: normal color Neuro: Speech: normal speech Extrem: General: edema Right lower extremity: edema (asymetric edema with R>L is chronic according to patient ) Objective Data Vital Signs Vital Signs: Vital Signs - 24 hr 09/04/19 12:16 09/04/19 14:00 09/04/19 14:04 Temperature 35.6 C L Pulse Rate 54 L 57 L 60 Respiratory Rate 20 22 H Blood Pressure 141/45 H Pulse Oximetry 97 09/04/19 14:35 09/04/19 16:00 09/04/19 16:14 Temperature 35.6 C L Pulse Rate 60 60 61 Respiratory Rate 20 20 Blood Pressure 143/60 H Pulse Oximetry 99 09/04/19 18:00 09/04/19 20:00 09/04/19 20:16 Temperature 36.5 C Pulse Rate 65 68 66 Respiratory Rate 18 Blood Pressure 132/48 L Pulse Oximetry 100 09/04/19 20:25 09/04/19 20:32 09/04/19 20:33 Temperature Pulse Rate 58 L 58 L Respiratory Rate 20 20 Blood Pressure Pulse Oximetry 96 09/04/19 21:22 09/04/19 22:00 09/05/19 00:00 Temperature Pulse Rate 71 75 80 Respiratory Rate Blood Pressure Pulse Oximetry 09/05/19 00:21 09/05/19 02:00 09/05/19 04:00 Temperature 36.1 C L Pulse Rate 80 81 85 Respiratory Rate 20 Blood Pressure 148/56 H Pulse Oximetry 97 09/05/19 04:53 09/05/19 06:00 09/05/19 08:25 Temperature 35.8 C L 35.9 C L Pulse Rate 99 80 76 Respiratory Rate 20 20 Blood Pressure 152/61 H 163/51 H Pulse Oximetry 96 97 09/05/19 08:45 09/05/19 08:58 09/05/19 09:15 Temperature Pulse Rate 77 75 98 Respiratory Rate 20 20 Blood Pressure Pulse Oximetry 98 09/05/19 10:00 Temperature Pulse Rate 69 Respiratory Rate Blood Pressure Pulse Oximetry Intake/Output Intake/Output: Intake & Output 09/02/19 09/03/19 09/04/19 09/05/19 23:59 23:59 23:59 23:59 Intake Total 2440 1090 1220 1130 Output Total 650 1675 650 Balance 2440 440 -290 480 Meds/Results Medications: Active Medications Generic Name Dose Route Start Last Admin Trade Name Freq PRN Reason Stop Dose Admin Acetaminophen 650 mg 09/01/19 07:30 09/04/19 23:47 Tylenol Tablet PO 650 mg Q4H PRN Administration Mild Pain (1-3) or Fever Albuterol 2.5 mg 09/03/19 08:05 09/05/19 08:45 Albuterol Sulf Neb 2.5mg/0.5ml INHALATION 2.5 mg Q6HRT NELA Administration Alprazolam 0.5 mg 09/01/19 13:05 09/05/19 09:23 Xanax PO 0.5 mg TID PRN Administration Anxiety Amlodipine Besylate 5 mg 09/02/19 09:00 09/05/19 09:18 Norvasc PO 5 mg DAILY NELA Administration Aspirin 81 mg 09/02/19 09:0
--- NOTE | 2019-09-05 12:29 | PM.PNNEP ---
Progress Note: A&P Assessment and Plan (1) Abnormal results of kidney function studies: Code(s): R94.4 - Abnormal results of kidney function studies Status: Acute Assessment and Plan: the patient has an elevated creatinine. This has remained stable Her ultrasound shows echogenic kidneys and 1 of them is small , consistent with chronic kidney disease. complements are okay so far. Other serology and immunofixation are pending her creatinine seems stable. This is probably just chronic kidney disease secondary to diabetes and hypertension. Vascular disease may be playing a role as well. She can follow up in my office as an outpatient or she can see someone who Dr. Sanches uses. (2) Coronary artery disease: Code(s): I25.10 - Atherosclerotic heart disease of [place] coronary artery without angina pectoris Status: Chronic Assessment and Plan: Echocardiogram shows diastolic dysfunction and pulmonary hypertension. She is not having chest pain now. (3) DM2 (diabetes mellitus, type 2): Code(s): E11.9 - Type 2 diabetes mellitus without complications Status: Chronic Assessment and Plan: the patient has diabetes. She is on sliding scale insulin. (4) Hypertension associated with diabetes: Code(s): E11.59 - Type 2 diabetes mellitus with other circulatory complications; I10 - Essential (primary) hypertension Status: Chronic Assessment and Plan: Her blood pressure is variable. Generally between 120 and 140. Further adjustments as an outpatient. (5) Hyperlipidemia associated with type 2 diabetes mellitus: Code(s): E11.69 - Type 2 diabetes mellitus with other specified complication; E78.5 - Hyperlipidemia, unspecified Status: Acute Assessment and Plan: She is on atorvastatin (6) Abdominal pain: Code(s): R10.9 - Unspecified abdominal pain Status: Acute Assessment and Plan: etiology of the abdominal pain is not clear. CT scan is negative. She has had a cholecystectomy. Her lipase is normal. Eating okay now. (7) Right sided weakness: Code(s): R53.1 - Weakness Status: Acute Assessment and Plan: Patient had an episode Of unresponsiveness. Evaluation underway Subjective Date/time seen: 09/05/19 12:29 Interval history: Patient is awake. No more nausea. No chest pain. No more unresponsive spells. Just got back from MRI of her neck. No contrast was used Review of Systems Cardiovascular: Cardiovascular: Reports no additional cardiovascular complaints Respiratory: Respiratory: Reports no additional respiratory complaints Gastrointestinal: Gastrointestinal: Reports no additional gastrointestinal complaints Genitourinary: Genitourinary: Reports no additional female genitourinary complaints Exam Narrative: Exam Narrative: WDWN in NAD skin no rash head ncat lungs clear cor reg no rub or gallop abd BS+ nontender and soft ext no edema. or cyanosis Objective Data Vital Signs Vital Signs: Vital Signs - 24 hr 09/04/19 14:00 09/04/19 14:04 09/04/19 14:35 Temperature Pulse Rate 57 L 60 60 Respiratory Rate 22 H 20 Blood Pressure Pulse Oximetry 09/04/19 16:00 09/04/19 16:14 09/04/19 18:00 Temperature 35.6 C L Pulse Rate 60 61 65 Respiratory Rate 20 Blood Pressure 143/60 H Pulse Oximetry 99 09/04/19 20:00 09/04/19 20:16 09/04/19 20:25 Temperature 36.5 C Pulse Rate 68 66 58 L Respiratory Rate 18 20 Blood Pressure 132/48 L Pulse Oximetry 100 09/04/19 20:32 09/04/19 20:33 09/04/19 21:22 Temperature Pulse Rate 58 L 71 Respiratory Rate 20 Blood Pressure Pulse Oximetry 96 09/04/19 22:00 09/05/19 00:00 09/05/19 00:21 Temperature 36.1 C L Pulse Rate 75 80 80 Respiratory Rate 20 Blood Pressure 148/56 H Pulse Oximetry 97 09/05/19 02:00 09/05/19 04:00 09/05/19 0
[2019-09-05 12:31] LABS: Glucose Point of Care 243 (65-105)
--- NOTE | 2019-09-05 13:35 | PM.IMPN ---
Progress Note: A&P Assessment and Plan (1) AMS (altered mental status): Code(s): R41.82 - Altered mental status, unspecified Status: Acute Assessment and Plan: Acute onset of AMS on 09/02. Carotid does show right ICA at >70%. MRI did not show any acute CVA. Neck MRA not diagnostic. ABG 7.263/48/[address] brain showing no acute findings. Labs showing no significant changes; CRP 14 but better than on admission. Symptoms resolved. Seizure? TIA? Neuro following and appreciate their input. Lamictal started. (2) Anemia: Code(s): D64.9 - Anemia, unspecified Status: Acute Assessment and Plan: Hgb dropped to 6.8. No evidence of acute blood loss. Iron levels consistent with anemia of chronic disease probably related to her CKD. B12 level okay. She was transfused one unit PRBC and given Lasix IV once. Hgb stable in the 8 range now. Continue to moniotr. (3) Chest pain: Code(s): R07.9 - Chest pain, unspecified Status: Acute Assessment and Plan: Patient brought to ER with complaint of CP. Patient has hx of CAD. Trop negative x 3. EKG showing LBBB (chronic). Doppler negative for DVT RLE. VQ is low probability. HRCT showing CMG with congestion and patchy right bilateral edema and/or pneumonia (PNA felt less likely). CT of the abdomen not showing any findings to determine etiology of her CP. Echo showing EF 50-55%, Grade II DD with HK inferior wall and severe pulmonary HTN and moderate MR. Suspect she has chronic angina. Ranexa and Isordil adjusted. Appreciate Cardiology input. (4) Right sided weakness: Code(s): R53.1 - Weakness Status: Acute Assessment and Plan: She has chronic weakness that she states is related to neuropathy. Her RUE weakness related to trauma. She had MRI brain 09/01 showing no acute findings. No old CVAs noted. Carotid doppler 09/01 showing >70% stenosis right ICA. Neck MRA not diagnostic. (5) DM2 (diabetes mellitus, type 2): Code(s): E11.9 - Type 2 diabetes mellitus without complications Status: Chronic Assessment and Plan: A1c 5.3. Glucose reviewed on 09/05/19. Glucose more elevated in the 200's related to the steroids. Patient on Lantus and Glipizide at home but appears to tightly controlled so glipizide stopped. She is being monitored with Accu-Cheks AC and HS. Advance lantus (6) Chronic respiratory failure with hypoxia: Code(s): J96.11 - Chronic respiratory failure with hypoxia Status: Chronic Assessment and Plan: It is listed that patient is on oxygen at 2 L per nasal cannula chronically but patient denies she is on O2 at home. The patient does have chronic bronchitis with chronic cough. CXR showing diffuse lung disease worst in the mid and lower lung zones consistent with pneumonia and/or pulmonary edema and/or atelectasis. IV fluids stopped and Lasix given. She remains on supplemental O2. She has scheduled nebulizer treatments. Wean O2 as tolerated. Suspect she probably has underlying NANCY given the pulm HTN. Apnea link not accurate. Abx and steroids started. Appreciate pulm input. (7) Anxiety and depression: Code(s): F41.9 - Anxiety disorder, unspecified; F32.9 - Major depressive disorder, single episode, unspecified Status: Chronic Assessment and Plan: Mood stable. Continue her scheduled Cymbalta and paroxetine. Alprazolam available as needed. (8) Hyperlipidemia associated with type 2 diabetes mellitus: Code(s): E11.69 - Type 2 diabetes mellitus with other specified complication; E78.5 - Hyperlipidemia, unspecified Status: Acute Assessment and Plan: LFTs okay. Continue Lipitor. (9) Hypertension associated with diabetes: Code(s): E11.59 - Type 2 diabetes mellitus with other circulatory complications; I10 - Essential (primary) hypertension Status: Chronic Assessment and Plan: B
[2019-09-05] MEDS: BISACODYL 10 MG SUPPOSITORY RECTAL (16:42)
--- NOTE | 2019-09-05 18:16 | WPDNEUROPN ---
Progress Note: A&P Assessment and Plan (1) Nonspecific paroxysmal spell: Code(s): R40.4 - Transient alteration of awareness Status: Acute (2) Carotid stenosis: Code(s): I65.29 - Occlusion and stenosis of unspecified carotid artery Status: Acute (3) COPD (chronic obstructive pulmonary disease): Code(s): J44.9 - Chronic obstructive pulmonary disease, unspecified Status: Acute (4) Pneumonia: Code(s): J18.9 - Pneumonia, unspecified organism Status: Acute (5) CHF (congestive heart failure): Code(s): I50.9 - Heart failure, unspecified Status: Acute (6) AMS (altered mental status): Code(s): R41.82 - Altered mental status, unspecified Status: Acute (7) Anemia: Code(s): D64.9 - Anemia, unspecified Status: Acute (8) Abnormal results of kidney function studies: Code(s): R94.4 - Abnormal results of kidney function studies Status: Acute (9) Diabetic neuropathy: Code(s): E11.40 - Type 2 diabetes mellitus with diabetic neuropathy, unspecified Status: Chronic (10) DM2 (diabetes mellitus, type 2): Code(s): E11.9 - Type 2 diabetes mellitus without complications Status: Chronic (11) Chronic back pain: Code(s): M54.9 - Dorsalgia, unspecified; G89.29 - Other chronic pain Status: Chronic (12) Chronic respiratory failure with hypoxia: Code(s): J96.11 - Chronic respiratory failure with hypoxia Status: Chronic (13) Anxiety and depression: Code(s): F41.9 - Anxiety disorder, unspecified; F32.9 - Major depressive disorder, single episode, unspecified Status: Chronic (14) Hyperlipidemia associated with type 2 diabetes mellitus: Code(s): E11.69 - Type 2 diabetes mellitus with other specified complication; E78.5 - Hyperlipidemia, unspecified Status: Acute (15) Chronic renal insufficiency, stage IV (severe): Code(s): N18.4 - Chronic kidney disease, stage 4 (severe) Status: Acute (16) Coronary artery disease: Code(s): I25.10 - Atherosclerotic heart disease of [place] coronary artery without angina pectoris Status: Chronic Additional Plan continue present medical managed Review of Systems Review of Systems: All systems reviewed & are unremarkable except as noted in HPI and below Exam Const: General: comfortable and no acute distress HENMT: General nose exam: Normal nares present Mouth: Yes moist mucous membranes Eyes: General: appearance normal, both eyes and all related structures Neck: Neck: supple Resp: Other: generalized rhonchi Cardio: Rate: regular rate Rhythm: regular rhythm GI: Auscultation: normal bowel sounds Skin: General skin exam: normal color and no rashes or lesions noted Neuro: Other: patient is awake alert well oriented has cognitive deficit and essentially paraplegic from a severe neuropathy and has been present for quite some time Extrem: General: normal to inspection Psych: Other: [id number] cognitive deficit Objective Data Vital Signs Vital Signs: Vital Signs - 24 hr 09/04/19 20:00 09/04/19 20:16 09/04/19 20:25 Temperature 36.5 C Pulse Rate 68 66 58 L Respiratory Rate 18 20 Blood Pressure 132/48 L Pulse Oximetry 100 09/04/19 20:32 09/04/19 20:33 09/04/19 21:22 Temperature Pulse Rate 58 L 71 Respiratory Rate 20 Blood Pressure Pulse Oximetry 96 09/04/19 22:00 09/05/19 00:00 09/05/19 00:21 Temperature 36.1 C L Pulse Rate 75 80 80 Respiratory Rate 20 Blood Pressure 148/56 H Pulse Oximetry 97 09/05/19 02:00 09/05/19 04:00 09/05/19 04:53 Temperature 35.8 C L Pulse Rate 81 85 99 Respiratory Rate 20 Blood Pressure 152/61 H Pulse Oximetry 96 09/05/19 06:00 09/05/19 08:25 09/05/19 08:45 Temperature 35.9 C L Pulse Rate 80 76 77 Respiratory Rate 20 20 Blood Pressure 163/51 H Pulse Oximetry 97 98 09/05/19 08:58 09/05/19
[2019-09-05] MEDS: ATORVASTATIN 40 MG TABLET 80 MG PO (20:26)
[2019-09-05] MEDS: INSULIN GLARGINE (*BKC) 100 UNITS/ML 28 UNITS SUB-Q (20:27)
[2019-09-05] MEDS: PARoxetine 20 MG TABLET 40 MG PO (20:28)
[2019-09-05 20:55] LABS: Glucose Point of Care 343 (65-105)
[2019-09-05 21:07] LABS: Glucose Point of Care 157 (65-105)
[2019-09-06] VITALS (30 sets, daily range): BP systolic 128–165; BP diastolic 48–97; PULSE 61–81; RESP 16–24; TEMP 35.7–36.8; O2SAT 91–99
[2019-09-06] MEDS: ALBUTEROL SULFATE NEB 2.5 MG/0.5 ML INH INHALATION ×4 (01:50→20:05)
[2019-09-06] MEDS: IPRATROPIUM BR 0.02% INH SOLN 0.5 MG/2.5 ML VIAL INHALATION ×2 (01:51→09:29)
[2019-09-06 05:09] LABS: Hematocrit 25.4 % (37.0-47.0); Hemoglobin 8.1 g/dL (12.0-15.0); Mean Corpuscular HGB Conc 31.9 g/dl (32-36); Mean Corpuscular Hemoglobin 30.5 pg (26-34); Mean Corpuscular Volume 95.5 fl (80-100); Mean Platelet Volume 9.7 fl (7.4-10.4); Platelet Count Result 256 k/mm3 (150-375); Red Blood Count 2.66 M/mm3 (4.2-5.4); Red Cell Distribution Width 13.3 % (11.5-14.5); White Blood Count 6.4 K/mm3 (4.5-10.0)
[2019-09-06 05:27] LABS: Albumin Level 3.7 g/dL (3.5-5.1); Anion Gap 14.1 mmol/L (7-16); Blood Urea Nitrogen 51 mg/dL (7-17); CRP 2.1 mg/dL (<1.0); Calcium 8.7 mg/dL (8.4-10.2); Carbon Dioxide 24 mmol/L (22-30); Chloride 98 mmol/L (98-107); Estimated CRCL calculation 24 ml/min; Estimated Glomerular Filt Rate 21; Glucose 207 mg/dL (65-105); Magnesium 2.1 mg/dL (1.6-2.3); Potassium 5.1 mmol/L (3.4-5.0); Sodium 131 mmol/L (137-145)
[2019-09-06 08:23] LABS: Glucose Point of Care 160 (65-105)
--- NOTE | 2019-09-06 08:30 | NEURO_ITS ---
TEST: ELECTROENCEPHALOGRAM DIAGNOSIS: ALTERED MENTAL STATUS PATIENT NUMBER: [id number] EEG NUMBER: [id number] RECORDING DATE: 09/06/19 CONDITION OF RECORDING: Drowsy and sleep EEG DESCRIPTION: Basic resting occipital frequency consists of small amount of poorly organized low voltage 8-9hz alpha mixed with low voltage 5-7hz theta. Bi- hemispheric excessive amount of theta activity is seen. Bilateral symmetrical sleep activity is seen during sleep. Hyperventilation and photic stimulation were not done. Nonparoxysmal. Nonfocal. Nonlateralizing. IMPRESSION: Abnormal record due to the presence of excessive amount of theta activity during drowsiness. This abnormality suggestive of underlying organic or metabolic encephalopathy or the post ictal state. Clinical correlation recommended. [facility]
[2019-09-06 09:08] LABS: Potassium 4.9 mmol/L (3.4-5.0)
[2019-09-06] MEDS: predniSONE 20 MG, predniSONE 10 MG 30 MG PO (09:20)
[2019-09-06] MEDS: amLODIPine BESYLATE 5 MG TABLET PO (09:22)
[2019-09-06] MEDS: GABAPENTIN 300 MG CAPSULE PO ×3 (09:24→17:43)
[2019-09-06] MEDS: ISOSORBIDE DINITRATE 20 MG TABLET 60 MG PO ×3 (09:24→17:43)
[2019-09-06] MEDS: DULoxetine HCL 30 MG CAPSULE.DR PO (09:24)
[2019-09-06] MEDS: lamoTRIgine 25 MG TABLET PO ×3 (09:25→19:56)
[2019-09-06] MEDS: METOPROLOL TARTRATE 25 MG TABLET PO ×2 (09:25→19:55)
[2019-09-06] MEDS: PANTOPRAZOLE 40 MG TABLET PO ×2 (09:26→19:55)
[2019-09-06] MEDS: RANOLAZINE 500 MG TAB.ER.12H 1000 MG PO ×2 (09:27→19:55)
[2019-09-06] MEDS: TAMSULOSIN HCL 0.4 MG CAPSULE PO (09:28)
[2019-09-06] MEDS: ALPRAZolam 0.5 MG TABLET PO ×2 (09:33→13:40)
--- NOTE | 2019-09-06 10:03 | PM.IMPN ---
Progress Note: A&P Assessment and Plan (1) AMS (altered mental status): Code(s): R41.82 - Altered mental status, unspecified Status: Acute Assessment and Plan: Acute onset of AMS on 09/02. Carotid does show right ICA at >70%. MRI did not show any acute CVA. Neck MRA not diagnostic. ABG 7.263/48/[address] brain showing no acute findings. Labs showing no significant changes; CRP 14 but better than on admission. Symptoms resolved. Seizure? TIA? Neuro following and appreciate their input. EEG (prelim) showing abnormalities that could be seen in a post-ictal state. Continue Lamictal. Discharge when okay with others (2) Anemia: Code(s): D64.9 - Anemia, unspecified Status: Acute Assessment and Plan: Hgb dropped to 6.8. No evidence of acute blood loss. Iron levels consistent with anemia of chronic disease probably related to her CKD. B12 level okay. She was transfused one unit PRBC and given Lasix IV once. Hgb stable in the 8 range now. Continue to monitor. Resume ASA. (3) Chest pain: Code(s): R07.9 - Chest pain, unspecified Status: Acute Assessment and Plan: Patient brought to ER with complaint of CP. Patient has hx of CAD. Trop negative x 3. EKG showing LBBB (chronic). Doppler negative for DVT RLE. VQ is low probability. HRCT showing CMG with congestion and patchy right bilateral edema and/or pneumonia (PNA felt less likely). CT of the abdomen not showing any findings to determine etiology of her CP. Echo showing EF 50-55%, Grade II DD with HK inferior wall and severe pulmonary HTN and moderate MR. Suspect she has chronic angina. Ranexa and Isordil adjusted. Appreciate Cardiology input. (4) Right sided weakness: Code(s): R53.1 - Weakness Status: Acute Assessment and Plan: She has chronic weakness that she states is related to neuropathy. Her RUE weakness related to trauma. She had MRI brain 09/01 showing no acute findings. No old CVAs noted. Carotid doppler 09/01 showing >70% stenosis right ICA. Neck MRA not diagnostic. Continue medical management. Okay to resume ASA since anemia more likely related to CKD. (5) DM2 (diabetes mellitus, type 2): Code(s): E11.9 - Type 2 diabetes mellitus without complications Status: Chronic Assessment and Plan: A1c 5.3. Glucose reviewed on 09/06/19. Glucose more elevated related to the steroids. Patient on Lantus and Glipizide at home but appears to tightly controlled so glipizide stopped. She is being monitored with Accu-Cheks AC and HS. Glucose better this morning. Continue lantus at curent dose (6) Chronic respiratory failure with hypoxia: Code(s): J96.11 - Chronic respiratory failure with hypoxia Status: Chronic Assessment and Plan: It is listed that patient is on oxygen at 2 L per nasal cannula chronically but patient denies she is on O2 at home. The patient does have chronic bronchitis with chronic cough. CXR showing diffuse lung disease worse in the mid and lower lung zones consistent with pneumonia and/or pulmonary edema and/or atelectasis. IV fluids stopped and Lasix given. She remains on supplemental O2 although does not apperantely need this. She has scheduled nebulizer treatments. Suspect she probably has underlying NANCY given the pulm HTN. Apnea link probably not accurate since she was on O2. Abx and steroids started. Appreciate pulm input. Repeat CXR (7) Anxiety and depression: Code(s): F41.9 - Anxiety disorder, unspecified; F32.9 - Major depressive disorder, single episode, unspecified Status: Chronic Assessment and Plan: Mood stable. Continue her scheduled Cymbalta and paroxetine. Alprazolam available as needed. (8) Hyperlipidemia associated with type 2 diabetes mellitus: Code(s): E11.69 - Type 2 diabetes mellitus with other specified complication; E78.5 - Hyperlipidemia, unspecified St
--- NOTE | 2019-09-06 10:19 | PM.PNCARD ---
Progress Note: A&P Assessment and Plan (1) Chest pain: Code(s): R07.9 - Chest pain, unspecified Status: Acute Assessment and Plan: Recently admitted to [facility] with chest pain. Workup including a stress test. Stress test August 09 showed fixed inferior defect but no ischemia. Normal ejection fraction. She has a longstanding history of coronary disease and remote PCI to the RCA. Medical management due to her renal insufficiency . V/Q low probability for PE. No ischemic chest discomfort today Continue metoprolol 25 mg b.i.d.. Isosorbide dinitrate 60 mg t.i.d.. (2) Coronary artery disease: Code(s): I25.10 - Atherosclerotic heart disease of [place] coronary artery without angina pectoris Status: Chronic Assessment and Plan: Continue Ranexa 1000 mg p.o. b.i.d., atorvastatin 80 mg daily and other meds as above. Aspirin held when her hemoglobin dropped. Restart if able. (3) Chronic renal insufficiency, stage IV (severe): Code(s): N18.4 - Chronic kidney disease, stage 4 (severe) Status: Acute Assessment and Plan: Most likely chronic. Dr Mendoza following (4) Hypertension associated with diabetes: Code(s): E11.59 - Type 2 diabetes mellitus with other circulatory complications; I10 - Essential (primary) hypertension Status: Chronic Assessment and Plan: As above. Diabetic management per hospitalist (5) Hyperlipidemia associated with type 2 diabetes mellitus: Code(s): E11.69 - Type 2 diabetes mellitus with other specified complication; E78.5 - Hyperlipidemia, unspecified Status: Acute Assessment and Plan: On statin Additional Plan Will follow with Dr Sanches outpatient No further cardiac recommendations. Cardiology will sign off. Plan discussed with Dr Riddle 1025 09/06/2019 Subjective Date/time seen: 09/06/19 10:19 Interval history: Follow up for : Chest pain, shortness of breath Date of service: 09/06/2019. Subjective: Only pain complaint today is right-sided chest discomfort that is reproducible on palpation. No left-sided chest discomfort which she knows is her heart. Complains of shortness of breath with exertional activities or if she talks too much . Worried that when she goes home she will have another attack . occasional lightheadedness. No palpitations. Review of Systems Review of Systems: All systems reviewed & are unremarkable except as noted in HPI and below Constitutional: Constitutional: Denies fatigue, Denies headache(s) and Denies lethargy Eyes: Eyes: Denies blurry vision ENT: Reports Normal hearing present, Denies headache(s), Denies lip swelling, Denies epistaxis and Denies neck pain Cardiovascular: Cardiovascular: Denies chest pain, Denies leg edema, Reports lightheadedness ( Occasional) and Reports dyspnea Respiratory: Respiratory: Reports dyspnea Gastrointestinal: Gastrointestinal: Denies abdominal pain Genitourinary: Genitourinary: Denies hematuria and Denies flank pain Musculoskeletal: Musculoskeletal: Denies neck pain Integumentary/Breasts: Skin/Breast: Reports dry skin and Denies pruritus Neurologic: Reports Normal hearing present, Denies confusion and Denies headache(s) Psychiatric: Psychiatric: Denies anxiety and Denies confusion Endocrine: Endocrine: Denies fatigue and Denies flushing Hematologic/Lymphatic: Hematologic/Lymphatic: Denies easy bleeding Allergic/Immunologic: Allergic/Immunologic: Denies GI upset with certain foods and Denies lip swelling Exam Narrative: Exam Narrative: Laying in bed. No distress. Const: General: cooperative, comfortable and no acute distress; No confusion Nutritional Appearance: obese Orientation/consciousness: No confusion HENMT:
--- NOTE | 2019-09-06 10:37 | WPDNEUROPN ---
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 increased the dose Review of Systems Review of Systems: All systems reviewed & are unremarkable except as noted in HPI and below Exam Const: General: cooperative and awake Nutritional Appearance: obese Orientation/consciousness: oriented to person and oriented to place HENMT: Ears: hearing grossly normal bilaterally General nose exam: No nasal discharge present Face and sinus: normal facial exam Eyes: General: appearance normal, both eyes and all related structures Neck: Neck: full ROM Resp: Effort & Inspection: normal respiratory effort and able to speak in complete sentences Cardio: Rate: regular rate Rhythm: regular rhythm GI: Auscultation: normal bowel sounds Neuro: General: oriented to person and oriented to place Cranial nerves: Yes CN's II-XII intact bilaterally, Yes Equal, round and reactive pupils present, Yes Nystagmus not present and Yes Midline tongue present Speech: normal speech Gait exam (Neuro): Unable to assess gait Motor exam (neuro): Abnormal motor strength present Sensory Exam: Sensory deficit (Neuro) Plantar Reflex Responses: downgoing: bilateral Psych: Affect: normal affect Attitude: cooperative Thought content: Yes Normal thought content present Insight: Fair insight present (Psych) Judgement: Fair judgement present (Psych) Objective Data Vital Signs Vital Signs: Vital Signs - 24 hr 09/05/19 12:00 09/05/19 12:47 09/05/19 14:00 Temperature 35.9 C L Pulse Rate 65 66 70 Respiratory Rate 22 H Blood Pressure 133/62 Pulse Oximetry 100 09/05/19 14:31 09/05/19 14:41 09/05/19 16:00 Temperature Pulse Rate 67 66 66 Respiratory Rate 22 H 22 H Blood Pressure Pulse Oximetry 09/05/19 16:43 09/05/19 17:00 09/05/19 19:47 Temperature 36.0 C L 35.7 C L Pulse Rate 66 65 Respiratory Rate 20 18 Blood Pressure 135/65 135/78 Pulse Oximetry 99 98 97 09/05/19 20:00 09/05/19 20:12 09/05/19 20:26 Temperature Pulse Rate 68 66 68 Respiratory Rate 16 Blood Pressure Pulse Oximetry 09/05/19 20:27 09/05/19 22:00 09/06/19 00:00 Temperature Pulse Rate 68 62 67 Respiratory Rate Blood Pressure Pulse Oximetry 09/06/19 00:10 09/06/19 01:51 09/06/19 01:53 Temperature 35.7 C L Pulse Rate 67 72 Respiratory Rate 20 16 Blood Pressure 150/63 H Pulse Oximetry 97 97 09/06/19 02:00 09/06/19 04:00 09/06/19 04:23 Temperature 35.8 C L Pulse Rate 74 76 69 Respiratory Rate 20 18 Blood Pressure 155/64 H Pulse Oximetry 99 09/06/19 06:00 09/06/19 08:00 09/06/19 09:25 Temperature 35.9 C L Pulse Rate 72 71 73 Respiratory Rate 20 Blood Pressure 150/97 H Pulse Oximetry 97 09/06/19 10:00 Temperature Pulse Rate 71 Respiratory Rate Blood Pressure Pulse Oximetry Intake/Output Intake/Output: Intake & Output 09/03/19 09/04/19 09/05/19 09/06/19 23:59 23:59 23:59 23:59 Intake Total 1090 1220 1910 600 Output Total 650 1675 1450 1800 Balance 440 -455 460 -1200 Meds/Results Medications: Active Medications Generic Name Dose Route Start Last Admin Trade Name Freq PRN Reason Stop Dose Admin Acetaminophen 650 mg 09/01/19 07:30 09/04/19 23:47 Tylenol Tablet PO 650 mg Q4H PRN Administration Mild Pain (1-3) or Fever Albuterol 2.5 mg 09/03/19 08:05 09/06/19 09:29 Albuterol Sulf Neb 2.5mg/0.5ml INHALATION 2.5 mg Q6HRT NELA Administration Alprazolam 0.5 mg 09/01/19 13:05 09/06/19 09:33 Xanax PO 0.5 mg TID PRN Administration Anxiety Amlodipine Besylate 5 mg 09/02/19 09:00 09/06/19 09:22 Norvasc PO 5 mg DAILY NELA Administration Aspirin 81 mg 09/02/19 09:00 09/03/19 09:35 Aspirin Chewable PO 81 mg DAILY NELA Administration Ator
[2019-09-06 12:09] LABS: Kappa\\Lambda Light Chains 1.39 (0.26-1.65); Lambda Light Chain 38.3 mg/L (5.7-26.3)
[2019-09-06] MEDS: INSULIN ASPART (*BKC) 100 UNITS/ML SUB-Q ×2 (12:35→17:43)
--- NOTE | 2019-09-06 13:46 | PM.PNPUL ---
Progress Note: A&P Assessment and Plan (1) CHF (congestive heart failure): Code(s): I50.9 - Heart failure, unspecified Status: Acute Assessment and Plan: - continue daily diuretics. (2) Pneumonia: Code(s): J18.9 - Pneumonia, unspecified organism Status: Acute Assessment and Plan: - continue Ceftriaxone and Azithromycin for total of 7 and 5 days respectively - if does not improve clinically over next 48 hours consider broadening coverage - SARS-CoV-2 negative (3) COPD (chronic obstructive pulmonary disease): Code(s): J44.9 - Chronic obstructive pulmonary disease, unspecified Status: Acute Assessment and Plan: - continue prednisone 30 mg PO OD for 5 days total - continue Albuterol and Atrovent Nebs Q6h - continue oxygen therapy at 2 liters per NC - needs PT and daily mobilization Subjective Date/time seen: 09/06/19 13:46 Interval history: Feeling slightly better but still has panic attacks and wants more O2 when this occurs. We talked about how O2 is not to be used as something to increase when she feesl short of breath. This can have negative consequences including increased pCO2, lung fibrosis, oxygen atelectasis. She says that she needs more O2 when she is panicked and feels short of breath. Review of Systems Review of Systems: All systems reviewed & are unremarkable except as noted in HPI and below Exam Const: General: comfortable and no acute distress Eyes: General: appearance normal, both eyes and all related structures Neck: Neck: supple and no JVD Resp: Auscultation: crackles (fine inspiratory crackles bilaterally) bilateral and diffuse GI: Auscultation: normal bowel sounds Skin: General skin exam: normal color Neuro: Speech: normal speech Extrem: General: edema Right lower extremity: edema (asymetric edema with R>L is chronic according to patient ) Objective Data Vital Signs Vital Signs: Vital Signs - 24 hr 09/05/19 14:00 09/05/19 14:31 09/05/19 14:41 Temperature Pulse Rate 70 67 66 Respiratory Rate 22 H 22 H Blood Pressure Pulse Oximetry 09/05/19 16:00 09/05/19 16:43 09/05/19 17:00 Temperature 36.0 C L Pulse Rate 66 66 Respiratory Rate 20 Blood Pressure 135/65 Pulse Oximetry 99 98 09/05/19 19:47 09/05/19 20:00 09/05/19 20:12 Temperature 35.7 C L Pulse Rate 65 68 66 Respiratory Rate 18 16 Blood Pressure 135/78 Pulse Oximetry 97 09/05/19 20:26 09/05/19 20:27 09/05/19 22:00 Temperature Pulse Rate 68 68 62 Respiratory Rate Blood Pressure Pulse Oximetry 09/06/19 00:00 09/06/19 00:10 09/06/19 01:51 Temperature 35.7 C L Pulse Rate 67 67 72 Respiratory Rate 20 16 Blood Pressure 150/63 H Pulse Oximetry 97 09/06/19 01:53 09/06/19 02:00 09/06/19 04:00 Temperature Pulse Rate 74 76 Respiratory Rate 20 Blood Pressure Pulse Oximetry 97 09/06/19 04:23 09/06/19 06:00 09/06/19 08:00 Temperature 35.8 C L 35.9 C L Pulse Rate 69 72 71 Respiratory Rate 18 20 Blood Pressure 155/64 H 150/97 H Pulse Oximetry 99 97 09/06/19 09:25 09/06/19 10:00 09/06/19 11:22 Temperature 36.1 C L Pulse Rate 73 71 61 Respiratory Rate 22 H Blood Pressure 128/5 L Pulse Oximetry 96 09/06/19 12:00 Temperature Pulse Rate 62 Respiratory Rate 22 H Blood Pressure Pulse Oximetry 96 Intake/Output Intake/Output: Intake & Output 09/03/19 09/04/19 09/05/19 09/06/19 23:59 23:59 23:59 23:59 Intake Total 1090 1220 1910 1080 Output Total 572 1531 1450 1800 Balance 160 -775 226 -498 Meds/Results Medications: Active Medications Generic Name Dose Route Start Last Admin Trade Name Freq PRN Reason Stop Dose Admin Acetaminophen 650 mg 09/01/19
--- NOTE | 2019-09-06 13:56 | PM.PNNEP ---
Progress Note: A&P Assessment and Plan (1) Abnormal results of kidney function studies: Code(s): R94.4 - Abnormal results of kidney function studies Status: Acute Assessment and Plan: the patient has an elevated creatinine. This has remained stable Her ultrasound shows echogenic kidneys and 1 of them is small , consistent with chronic kidney disease. complements are okay so far. Other serology and immunofixation are pending her creatinine seems stable. This is probably just chronic kidney disease secondary to diabetes and hypertension. Vascular disease may be playing a role as well. She can follow up in my office as an outpatient or she can see someone who Dr. Sanches uses. (2) Coronary artery disease: Code(s): I25.10 - Atherosclerotic heart disease of [place] coronary artery without angina pectoris Status: Chronic Assessment and Plan: Echocardiogram shows diastolic dysfunction and pulmonary hypertension. She is not having chest pain now. she is more short of breath. Chest x-ray looks like fluid. Will give diuretics. (3) DM2 (diabetes mellitus, type 2): Code(s): E11.9 - Type 2 diabetes mellitus without complications Status: Chronic Assessment and Plan: the patient has diabetes. She is on sliding scale insulin. (4) Hypertension associated with diabetes: Code(s): E11.59 - Type 2 diabetes mellitus with other circulatory complications; I10 - Essential (primary) hypertension Status: Chronic Assessment and Plan: Her blood pressure is variable. Generally between 120 and 140. Further adjustments as an outpatient. (5) Hyperlipidemia associated with type 2 diabetes mellitus: Code(s): E11.69 - Type 2 diabetes mellitus with other specified complication; E78.5 - Hyperlipidemia, unspecified Status: Acute Assessment and Plan: She is on atorvastatin (6) Abdominal pain: Code(s): R10.9 - Unspecified abdominal pain Status: Acute Assessment and Plan: etiology of the abdominal pain is not clear. CT scan is negative. She has had a cholecystectomy. Her lipase is normal. Eating okay now. (7) Right sided weakness: Code(s): R53.1 - Weakness Status: Acute Assessment and Plan: Patient had an episode Of unresponsiveness. Evaluation underway Subjective Date/time seen: 09/06/19 13:56 Interval history: Patient is awake. Ate some lunch. She is short of breath with talking or eating she says. Review of Systems Cardiovascular: Cardiovascular: Reports no additional cardiovascular complaints Respiratory: Respiratory: Reports no additional respiratory complaints Gastrointestinal: Gastrointestinal: Reports no additional gastrointestinal complaints Genitourinary: Genitourinary: Reports no additional female genitourinary complaints Exam Narrative: Exam Narrative: WDWN in NAD skin no rash head ncat lungs Decreased breath sounds at the bases cor reg no rub or gallop abd BS+ nontender and soft ext no edema. or cyanosis Objective Data Vital Signs Vital Signs: Vital Signs - 24 hr 09/05/19 14:00 09/05/19 14:31 09/05/19 14:41 Temperature Pulse Rate 70 67 66 Respiratory Rate 22 H 22 H Blood Pressure Pulse Oximetry 09/05/19 16:00 09/05/19 16:43 09/05/19 17:00 Temperature 36.0 C L Pulse Rate 66 66 Respiratory Rate 20 Blood Pressure 135/65 Pulse Oximetry 99 98 09/05/19 19:47 09/05/19 20:00 09/05/19 20:12 Temperature 35.7 C L Pulse Rate 65 68 66 Respiratory Rate 18 16 Blood Pressure 135/78 Pulse Oximetry 97 09/05/19 20:26 09/05/19 20:27 09/05/19 22:00 Temperature Pulse Rate 68 68 62 Respiratory Rate Blood Pressure Pulse Oximetry 09/06/19 00:00 09/06/19 00:10 09/06/19 01:51 Temperature 35.7 C L Pulse Rate 67 67 72 Respiratory Rate 20 16 Blood Pressure 150/63 H
[2019-09-06] MEDS: BUMETANIDE INJ 1 MG/4 ML VIAL IV PUSH (15:04)
[2019-09-06 15:31] LABS: Glucose Point of Care 236 (65-105)
[2019-09-06 16:30] LABS: Glucose Point of Care 260 (65-105)
[2019-09-06] MEDS: ATORVASTATIN 40 MG TABLET 80 MG PO (19:56)
[2019-09-06] MEDS: lamoTRIgine 25 MG TABLET 50 MG PO (19:57)
[2019-09-06] MEDS: PARoxetine 20 MG TABLET 40 MG PO (19:57)
[2019-09-06] MEDS: INSULIN GLARGINE (*BKC) 100 UNITS/ML 28 UNITS SUB-Q (20:00)
[2019-09-06 20:03] LABS: Glucose Point of Care 302 (65-105)
[2019-09-07] VITALS (25 sets, daily range): BP systolic 151–175; BP diastolic 52–62; PULSE 62–111; RESP 16–24; TEMP 36–36.8; O2SAT 90–98
[2019-09-07] MEDS: ALBUTEROL SULFATE NEB 2.5 MG/0.5 ML INH INHALATION ×4 (02:31→19:29)
[2019-09-07] MEDS: ACETAMINOPHEN 325 MG TABLET 650 MG PO ×2 (02:41→20:14)
[2019-09-07] MEDS: ALPRAZolam 0.5 MG TABLET PO ×3 (02:41→19:01)
[2019-09-07 05:18] LABS: Albumin Level 3.5 g/dL (3.5-5.1); Anion Gap 13.2 mmol/L (7-16); Blood Urea Nitrogen 54 mg/dL (7-17); Calcium 8.6 mg/dL (8.4-10.2); Carbon Dioxide 25 mmol/L (22-30); Chloride 98 mmol/L (98-107); Estimated CRCL calculation 26 ml/min; Estimated Glomerular Filt Rate 23; Glucose 174 mg/dL (65-105); Phosphorus 3.6 mg/dL (2.5-4.5); Potassium 5.2 mmol/L (3.4-5.0); Sodium 131 mmol/L (137-145)
[2019-09-07 08:15] LABS: Glucose Point of Care 141 (65-105)
[2019-09-07] MEDS: PANTOPRAZOLE 40 MG TABLET PO ×2 (08:53→20:12)
[2019-09-07] MEDS: METOPROLOL TARTRATE 25 MG TABLET PO ×2 (08:53→20:14)
[2019-09-07] MEDS: amLODIPine BESYLATE 5 MG TABLET PO (08:53)
[2019-09-07] MEDS: RANOLAZINE 500 MG TAB.ER.12H 1000 MG PO ×2 (08:54→20:12)
[2019-09-07] MEDS: predniSONE 20 MG, predniSONE 10 MG 30 MG PO (08:54)
[2019-09-07] MEDS: DULoxetine HCL 30 MG CAPSULE.DR PO (08:54)
[2019-09-07] MEDS: GABAPENTIN 300 MG CAPSULE PO ×3 (08:54→17:48)
[2019-09-07] MEDS: ISOSORBIDE DINITRATE 20 MG TABLET 60 MG PO ×3 (08:55→17:48)
[2019-09-07] MEDS: lamoTRIgine 25 MG TABLET 50 MG PO ×2 (08:55→20:12)
[2019-09-07] MEDS: BUMETANIDE INJ 1 MG/4 ML VIAL IV PUSH ×2 (08:56→17:48)
[2019-09-07 10:42] LABS: Complement Total CH50 >60 U/mL (31-60)
[2019-09-07 11:57] LABS: Glucose Point of Care 223 (65-105)
[2019-09-07] MEDS: lamoTRIgine 25 MG TABLET PO ×2 (12:25→20:12)
[2019-09-07] MEDS: ASPIRIN 81 MG CHEWABLE TABLET PO (12:26)
[2019-09-07] MEDS: TAMSULOSIN HCL 0.4 MG CAPSULE PO (12:26)
[2019-09-07] MEDS: INSULIN ASPART (*BKC) 100 UNITS/ML SUB-Q (12:26)
[2019-09-07 16:05] LABS: Glucose Point of Care 188 (65-105)
--- NOTE | 2019-09-07 16:38 | PM.PNNEP ---
Progress Note: A&P Assessment and Plan (1) Abnormal results of kidney function studies: Code(s): R94.4 - Abnormal results of kidney function studies Status: Acute Assessment and Plan: the patient has an elevated creatinine. This has remained stable Her ultrasound shows echogenic kidneys and 1 of them is small , consistent with chronic kidney disease. complements are okay. [place] lambda ratio is okay. Other serology and immunofixation are pending her creatinine seems stable. This is probably just chronic kidney disease secondary to diabetes and hypertension. Vascular disease may be playing a role as well. She can follow up in my office as an outpatient or she can see someone who Dr. Sanches uses. (2) Coronary artery disease: Code(s): I25.10 - Atherosclerotic heart disease of [place] coronary artery without angina pectoris Status: Chronic Assessment and Plan: Echocardiogram shows diastolic dysfunction and pulmonary hypertension. She is not having chest pain now. Breathing is better. Continue diuretics for now. (3) DM2 (diabetes mellitus, type 2): Code(s): E11.9 - Type 2 diabetes mellitus without complications Status: Chronic Assessment and Plan: the patient has diabetes. She is on sliding scale insulin. (4) Hypertension associated with diabetes: Code(s): E11.59 - Type 2 diabetes mellitus with other circulatory complications; I10 - Essential (primary) hypertension Status: Chronic Assessment and Plan: Her blood pressure is variable. Generally between 120 and 160. See what happens with diuresis. (5) Hyperlipidemia associated with type 2 diabetes mellitus: Code(s): E11.69 - Type 2 diabetes mellitus with other specified complication; E78.5 - Hyperlipidemia, unspecified Status: Acute Assessment and Plan: She is on atorvastatin (6) Abdominal pain: Code(s): R10.9 - Unspecified abdominal pain Status: Acute Assessment and Plan: etiology of the abdominal pain is not clear. CT scan is negative. She has had a cholecystectomy. Her lipase is normal. Eating okay now. (7) Right sided weakness: Code(s): R53.1 - Weakness Status: Acute Assessment and Plan: Patient had an episode Of unresponsiveness. Evaluation underway Subjective Date/time seen: 09/07/19 16:38 Interval history: Patient is awake. Her shortness of breath is better today. Review of Systems Cardiovascular: Cardiovascular: Reports no additional cardiovascular complaints Respiratory: Respiratory: Reports no additional respiratory complaints Gastrointestinal: Gastrointestinal: Reports no additional gastrointestinal complaints Genitourinary: Genitourinary: Reports no additional female genitourinary complaints Exam Narrative: Exam Narrative: WDWN in NAD skin no rash head ncat lungs Decreased breath sounds at the bases cor reg no rub abd BS+ nontender and soft ext no edema. Objective Data Vital Signs Vital Signs: Vital Signs - 24 hr 09/06/19 18:00 09/06/19 19:31 09/06/19 19:55 Temperature 36.6 C Pulse Rate 79 81 80 Respiratory Rate 22 H Blood Pressure 165/62 H Pulse Oximetry 96 09/06/19 20:00 09/06/19 20:05 09/06/19 20:14 Temperature Pulse Rate 81 66 70 Respiratory Rate 20 20 Blood Pressure Pulse Oximetry 97 94 09/06/19 22:00 09/06/19 23:19 09/06/19 23:37 Temperature 36.8 C Pulse Rate 73 67 Respiratory Rate 20 Blood Pressure 151/49 H Pulse Oximetry 94 97 09/07/19 00:00 09/07/19 01:52 09/07/19 02:32 Temperature Pulse Rate 66 69 65 Respiratory Rate 20 Blood Pressure Pulse Oximetry 09/07/19 02:42 09/07/19 04:00 09/07/19 05:20 Temperature 36.3 C L Pulse Rate 69 63 68 Respiratory Rate 20 18 Blood Pressure 168/52 H Pulse Oximetry 97 09/07/19 08:00 09/07/19 08:28 09/07/19 08:3
--- NOTE | 2019-09-07 18:37 | P.PNIM_ITS ---
Progress Note: A&P Assessment and Plan (1) AMS (altered mental status): Code(s): R41.82 - Altered mental status, unspecified Status: Acute Assessment and Plan: Acute onset of AMS on 09/02. Carotid does show right ICA at >70%. MRI did not show any acute CVA. Neck MRA not diagnostic. ABG 7.263/48/[address] brain showing no acute findings. Labs showing no significant changes; CRP 14 but better than on admission. Symptoms resolved. Seizure? TIA? Neuro following and appreciate their input. EEG (prelim) showing abnormalities that could be seen in a post-ictal state. Continue Lamictal. Discharge soon (2) Anemia: Code(s): D64.9 - Anemia, unspecified Status: Acute Assessment and Plan: Hgb dropped to 6.8. No evidence of acute blood loss. Iron levels consistent with anemia of chronic disease probably related to her CKD. B12 level okay. She was transfused one unit PRBC and given Lasix IV once. Hgb stable in the 8 range now. Continue to monitor. Resume ASA. (3) Chest pain: Code(s): R07.9 - Chest pain, unspecified Status: Acute Assessment and Plan: Patient brought to ER with complaint of CP. Patient has hx of CAD. Trop negative x 3. EKG showing LBBB (chronic). Doppler negative for DVT RLE. VQ is low probability. HRCT showing CMG with congestion and patchy right bilateral edema and/or pneumonia (PNA felt less likely). CT of the abdomen not showing any findings to determine etiology of her CP. Echo showing EF 50-55%, Grade II DD with HK inferior wall and severe pulmonary HTN and moderate MR. Suspect she has chronic angina. Ranexa and Isordil adjusted. Appreciate Cardiology input. (4) Right sided weakness: Code(s): R53.1 - Weakness Status: Acute Assessment and Plan: She has chronic weakness that she states is related to neuropathy. Her RUE weakness related to trauma. She had MRI brain 09/01 showing no acute findings. No old CVAs noted. Carotid doppler 09/01 showing >70% stenosis right ICA. Neck MRA not diagnostic. Continue medical management. Okay to resume ASA since anemia more likely related to CKD. (5) DM2 (diabetes mellitus, type 2): Code(s): E11.9 - Type 2 diabetes mellitus without complications Status: Chronic Assessment and Plan: A1c 5.3. Glucose reviewed on 09/06/19. Glucose more elevated related to the steroids. Patient on Lantus and Glipizide at home but appears to tightly controlled so glipizide stopped. She is being monitored with Accu-Cheks AC and HS. Glucose better this morning. Continue lantus at curent dose (6) Chronic respiratory failure with hypoxia: Code(s): J96.11 - Chronic respiratory failure with hypoxia Status: Chronic Assessment and Plan: It is listed that patient is on oxygen at 2 L per nasal cannula chronically but patient denies she is on O2 at home. The patient does have chronic bronchitis with chronic cough. CXR showing diffuse lung disease worse in the mid and lower lung zones consistent with pneumonia and/or pulmonary edema and/or atelectasis. IV fluids stopped and Lasix given. She remains on supplemental O2 although does not apperantely need this. She has scheduled nebulizer treatments. Suspect she probably has underlying NANCY given the pulm HTN. Apnea link probably not accurate since she was on O2. Abx and steroids started. Appreciate pulm input. Repeat CXR (7) Anxiety and depression: Code(s): F41.9 - Anxiety disorder, unspecified; F32.9 - Major depressive disorder, single episode, unspecified Status: Chronic Assessment and P
[2019-09-07 20:05] LABS: Glucose Point of Care 319 (65-105)
[2019-09-07] MEDS: ATORVASTATIN 40 MG TABLET 80 MG PO (20:12)
[2019-09-07] MEDS: PARoxetine 20 MG TABLET 40 MG PO (20:12)
[2019-09-07] MEDS: INSULIN GLARGINE (*BKC) 100 UNITS/ML 28 UNITS SUB-Q (20:12)
[2019-09-08] VITALS (17 sets, daily range): BP systolic 151–168; BP diastolic 52–75; PULSE 64–81; RESP 18–32; TEMP 36.3–37.1; O2SAT 91–100
[2019-09-08] MEDS: ALBUTEROL SULFATE NEB 2.5 MG/0.5 ML INH INHALATION ×3 (02:01→14:02)
[2019-09-08 05:08] LABS: Anion Gap 12.8 mmol/L (7-16); Blood Urea Nitrogen 50 mg/dL (7-17); Calcium 8.6 mg/dL (8.4-10.2); Carbon Dioxide 27 mmol/L (22-30); Chloride 99 mmol/L (98-107); Estimated CRCL calculation 26 ml/min; Estimated Glomerular Filt Rate 23; Glucose 171 mg/dL (65-105); Potassium 4.8 mmol/L (3.4-5.0); Sodium 134 mmol/L (137-145)
[2019-09-08 05:08] LABS: Osmolality, Urine 1033 mOsm/kg (50-1200)
[2019-09-08 08:38] LABS: Glucose Point of Care 129 (65-105)
[2019-09-08] MEDS: ISOSORBIDE DINITRATE 20 MG TABLET 60 MG PO ×3 (08:54→16:28)
[2019-09-08] MEDS: amLODIPine BESYLATE 5 MG TABLET PO (08:54)
[2019-09-08] MEDS: ASPIRIN 81 MG CHEWABLE TABLET PO (08:54)
[2019-09-08] MEDS: predniSONE 20 MG, predniSONE 10 MG 30 MG PO (08:54)
[2019-09-08] MEDS: DULoxetine HCL 30 MG CAPSULE.DR PO (08:54)
[2019-09-08] MEDS: GABAPENTIN 300 MG CAPSULE PO ×3 (08:54→16:28)
[2019-09-08] MEDS: METOPROLOL TARTRATE 25 MG TABLET PO (08:55)
[2019-09-08] MEDS: RANOLAZINE 500 MG TAB.ER.12H 1000 MG PO (08:55)
[2019-09-08] MEDS: TAMSULOSIN HCL 0.4 MG CAPSULE PO (08:55)
[2019-09-08] MEDS: lamoTRIgine 25 MG TABLET PO (08:55)
[2019-09-08] MEDS: lamoTRIgine 25 MG TABLET 50 MG PO (08:55)
[2019-09-08] MEDS: ALPRAZolam 0.5 MG TABLET PO ×2 (08:55→16:28)
[2019-09-08] MEDS: PANTOPRAZOLE 40 MG TABLET PO (08:55)
[2019-09-08] MEDS: BUMETANIDE INJ 1 MG/4 ML VIAL IV PUSH (09:55)
--- NOTE | 2019-09-08 10:35 | PM.PNNEP ---
Progress Note: A&P Assessment and Plan (1) Abnormal results of kidney function studies: Code(s): R94.4 - Abnormal results of kidney function studies Status: Acute Assessment and Plan: the patient has an elevated creatinine. This has remained stable Creatinine has actually improved with diuretics. Will continue these going while she is here and while the creatinine is improving. (2) Coronary artery disease: Code(s): I25.10 - Atherosclerotic heart disease of [place] coronary artery without angina pectoris Status: Chronic Assessment and Plan: Echocardiogram shows diastolic dysfunction and pulmonary hypertension. She tells me that she has occasional chest pain. Breathing is better. (3) DM2 (diabetes mellitus, type 2): Code(s): E11.9 - Type 2 diabetes mellitus without complications Status: Chronic Assessment and Plan: the patient has diabetes. She is on sliding scale insulin. (4) Hypertension associated with diabetes: Code(s): E11.59 - Type 2 diabetes mellitus with other circulatory complications; I10 - Essential (primary) hypertension Status: Chronic Assessment and Plan: Her blood pressure is variable. Generally between 120 and 160. Will increase amlodipine to 10. (5) Hyperlipidemia associated with type 2 diabetes mellitus: Code(s): E11.69 - Type 2 diabetes mellitus with other specified complication; E78.5 - Hyperlipidemia, unspecified Status: Acute Assessment and Plan: She is on atorvastatin (6) Abdominal pain: Code(s): R10.9 - Unspecified abdominal pain Status: Acute Assessment and Plan: etiology of the abdominal pain is not clear. CT scan is negative. She has had a cholecystectomy. Her lipase is normal. Eating okay now. (7) Right sided weakness: Code(s): R53.1 - Weakness Status: Acute Assessment and Plan: Patient had an episode Of unresponsiveness. Evaluation underway Subjective Date/time seen: 09/08/19 10:35 Interval history: Patient is awake. Breathing is better. Still having some chest pain occasionally. Review of Systems Cardiovascular: Cardiovascular: Reports no additional cardiovascular complaints Respiratory: Respiratory: Reports no additional respiratory complaints Gastrointestinal: Gastrointestinal: Reports no additional gastrointestinal complaints Genitourinary: Genitourinary: Reports no additional female genitourinary complaints Exam Narrative: Exam Narrative: WDWN in NAD skin no rash head ncat lungs Decreased breath sounds at the bases cor reg no rub abd BS+ nontender and soft ext no edema. Objective Data Vital Signs Vital Signs: Vital Signs - 24 hr 09/07/19 12:00 09/07/19 13:39 09/07/19 13:49 Temperature 36.8 C Pulse Rate 68 69 70 Respiratory Rate 20 20 20 Blood Pressure 151/55 H Pulse Oximetry 93 09/07/19 14:00 09/07/19 16:00 09/07/19 18:00 Temperature 36.2 C L Pulse Rate 69 73 81 Respiratory Rate 22 H Blood Pressure 157/62 H Pulse Oximetry 90 09/07/19 19:31 09/07/19 19:32 09/07/19 19:37 Temperature 36.6 C Pulse Rate 82 84 81 Respiratory Rate 16 20 16 Blood Pressure 154/62 H Pulse Oximetry 93 96 09/07/19 20:00 09/07/19 20:14 09/07/19 22:00 Temperature Pulse Rate 80 111 H 69 Respiratory Rate Blood Pressure Pulse Oximetry 95 09/07/19 23:31 09/07/19 23:43 09/08/19 00:00 Temperature 36.5 C Pulse Rate 72 71 Respiratory Rate 18 Blood Pressure 155/60 H Pulse Oximetry 95 97 09/08/19 02:00 09/08/19 02:05 09/08/19 02:08 Temperature Pulse Rate 68 67 68 Respiratory Rate 20 Blood Pressure Pulse Oximetry 93 09/08/19 02:10 09/08/19 04:00 09/08/19 06:00 Temperature 36.6 C Pulse Rate 67 67 66 Respiratory Rate 20 18 Blood Pressure 151/61 H Pulse Oximetry 97 09/08/19 08:00
[2019-09-08 12:39] LABS: Glucose Point of Care 232 (65-105)
[2019-09-08] MEDS: INSULIN ASPART (*BKC) 100 UNITS/ML SUB-Q (12:50)
--- NOTE | 2019-09-08 15:18 | WPDNEUROPN ---
Progress Note: A&P Assessment and Plan (1) Nonspecific paroxysmal spell: Code(s): R40.4 - Transient alteration of awareness Status: Acute (2) Carotid stenosis: Code(s): I65.29 - Occlusion and stenosis of unspecified carotid artery Status: Acute (3) COPD (chronic obstructive pulmonary disease): Code(s): J44.9 - Chronic obstructive pulmonary disease, unspecified Status: Acute (4) Pneumonia: Code(s): J18.9 - Pneumonia, unspecified organism Status: Acute (5) CHF (congestive heart failure): Code(s): I50.9 - Heart failure, unspecified Status: Acute (6) AMS (altered mental status): Code(s): R41.82 - Altered mental status, unspecified Status: Acute (7) Anemia: Code(s): D64.9 - Anemia, unspecified Status: Acute (8) Interstitial lung disease: Code(s): J84.9 - Interstitial pulmonary disease, unspecified Status: Acute (9) Right sided weakness: Code(s): R53.1 - Weakness Status: Acute (10) Abdominal pain: Code(s): R10.9 - Unspecified abdominal pain Status: Acute (11) Abnormal results of kidney function studies: Code(s): R94.4 - Abnormal results of kidney function studies Status: Acute (12) Chronic bronchitis: Code(s): J42 - Unspecified chronic bronchitis Status: Chronic (13) Diabetic neuropathy: Code(s): E11.40 - Type 2 diabetes mellitus with diabetic neuropathy, unspecified Status: Chronic (14) Chronic back pain: Code(s): M54.9 - Dorsalgia, unspecified; G89.29 - Other chronic pain Status: Chronic (15) DM2 (diabetes mellitus, type 2): Code(s): E11.9 - Type 2 diabetes mellitus without complications Status: Chronic (16) Chronic respiratory failure with hypoxia: Code(s): J96.11 - Chronic respiratory failure with hypoxia Status: Chronic (17) Anxiety and depression: Code(s): F41.9 - Anxiety disorder, unspecified; F32.9 - Major depressive disorder, single episode, unspecified Status: Chronic (18) Hyperlipidemia associated with type 2 diabetes mellitus: Code(s): E11.69 - Type 2 diabetes mellitus with other specified complication; E78.5 - Hyperlipidemia, unspecified Status: Acute (19) Hypertension associated with diabetes: Code(s): E11.59 - Type 2 diabetes mellitus with other circulatory complications; I10 - Essential (primary) hypertension Status: Chronic Additional Plan no further episodes of unresponsiveness continue lamotrigine will follow periodically Review of Systems Review of Systems: All systems reviewed & are unremarkable except as noted in HPI and below Exam Const: General: comfortable and no acute distress HENMT: General nose exam: Normal nares present Mouth: Yes moist mucous membranes Eyes: General: appearance normal, both eyes and all related structures Neck: Neck: supple and no JVD Resp: Effort & Inspection: normal respiratory effort Auscultation: clear to auscultation bilaterally Cardio: Rate: regular rate Rhythm: regular rhythm GI: Auscultation: normal bowel sounds Neuro: Other: patient is awake alert well oriented which short-term memory deficit Extrem: Other: remains paraplegic with absent reflexes and sensory deficit Psych: Mental Status: mental status grossly normal Objective Data Vital Signs Vital Signs: Vital Signs - 24 hr 09/07/19 16:00 09/07/19 18:00 09/07/19 19:31 Temperature 36.2 C L Pulse Rate 73 81 82 Respiratory Rate 22 H 16 Blood Pressure 157/62 H Pulse Oximetry 90 93 09/07/19 19:32 09/07/19 19:37 09/07/19 20:00 Temperature 36.6 C Pulse Rate 84 81 80 Respiratory Rate 20 16 Blood Pressure 154/62 H Pulse Oximetry 96 95 09/07/19 20:14 09/07/19 22:00 09/07/19 23:31 Temperature Pulse Rate 111 H 69 Respiratory Rate Blood Pressure Pulse Oximetry 95 09/07/19 23:43 09/08/19 00:00 09/08/19 0
--- NOTE | 2019-09-08 18:31 | PM.DS ---
DS: Admitting Diagnosis Admitting Diagnosis Admitting Diagnosis: Chest pain, unspecified DS: Discharge Diagnosis Discharge Diagnosis (1) AMS (altered mental status): Code(s): R41.82 - Altered mental status, unspecified Status: Acute Assessment and Plan: Acute onset of AMS on 09/02. Carotid does show right ICA at >70%. MRI did not show any acute CVA. Neck MRA not diagnostic. ABG 7.263/48/[address] brain showing no acute findings. Labs showing no significant changes; CRP 14 but better than on admission. Symptoms resolved. Seizure? TIA? Neuro following and appreciate their input. EEG (prelim) showing abnormalities that could be seen in a post-ictal state. Continue Lamictal at discharge. (2) Anemia: Code(s): D64.9 - Anemia, unspecified Status: Acute Assessment and Plan: Hgb dropped to 6.8. No evidence of acute blood loss. Iron levels consistent with anemia of chronic disease probably related to her CKD. B12 level okay. She was transfused one unit PRBC and given Lasix IV once. Hgb stable in the 8 range now. . (3) Chest pain: Code(s): R07.9 - Chest pain, unspecified Status: Acute Assessment and Plan: Patient brought to ER with complaint of CP. Patient has hx of CAD. Trop negative x 3. EKG showing LBBB (chronic). Doppler negative for DVT RLE. VQ is low probability. HRCT showing CMG with congestion and patchy right bilateral edema and/or pneumonia (PNA felt less likely). CT of the abdomen not showing any findings to determine etiology of her CP. Echo showing EF 50-55%, Grade II DD with HK inferior wall and severe pulmonary HTN and moderate MR. Suspect she has chronic angina. Ranexa and Isordil adjusted. per Cardiology and will follow-up with her core finisher. (4) Right sided weakness: Code(s): R53.1 - Weakness Status: Acute Assessment and Plan: She has chronic weakness that she states is related to neuropathy. Her RUE weakness related to trauma. She had MRI brain 09/01 showing no acute findings. No old CVAs noted. Carotid doppler 09/01 showing >70% stenosis right ICA. Neck MRA not diagnostic. Continue medical management. Okay to resume ASA since anemia more likely related to CKD. (5) DM2 (diabetes mellitus, type 2): Code(s): E11.9 - Type 2 diabetes mellitus without complications Status: Chronic Assessment and Plan: A1c 5.3. Glucose reviewed on 09/06/19. Glucose more elevated related to the steroids. Patient on Lantus and Glipizide at home but appears to tightly controlled so glipizide stopped. She is being monitored with Accu-Cheks AC and HS. Glucose better this morning. Continue lantus and increased to 28 units HS (6) Chronic respiratory failure with hypoxia: Code(s): J96.11 - Chronic respiratory failure with hypoxia Status: Chronic Assessment and Plan: It is listed that patient is on oxygen at 2 L per nasal cannula chronically but patient denies she is on O2 at home. The patient does have chronic bronchitis with chronic cough. CXR showing diffuse lung disease worse in the mid and lower lung zones consistent with pneumonia and/or pulmonary edema and/or atelectasis. IV fluids stopped and Lasix given. She remains on supplemental O2 although does not apperantely need this. She has scheduled nebulizer treatments. Suspect she probably has underlying NANCY given the pulm HTN. Apnea link probably not accurate since she was on O2. Abx while here and completed 7 day course ceftriaxone and azithromycin. Appreciate pulm input. Repeat CXR (7) Anxiety and depression: Code(s): F41.9 - Anxiety disorder, unspecified; F32.9 - Major depressive disorder, single episode, unspecified Status: Chronic Assessment and Plan: Mood stable. Continue her scheduled Cymbalta and paroxetine. Alprazolam available as needed. (8) Hyperlipidemia associated with type 2 diabetes m
== END 2019-09-08 16:41 | DRG 303 ==
LOC: ANHED 07:32 → ANHIMU 08:40
PROVIDERS: Emergency Medicine; Internal Medicine Cardiovascular Disease; Internal Medicine Nephrology; Nurse Practitioner; Admitting Provider Internal Medicine; Emergency Provider Emergency Medicine; PCP Family Medicine; Visit Provider Internal Medicine
DX: I25.119 Atherosclerotic heart disease of native coronary artery with unspecified angina pectoris (principal); J96.11 Chronic respiratory failure with hypoxia; N18.4 Chronic kidney disease, stage 4 (severe); R41.82 Altered mental status, unspecified; I12.9 Hypertensive chronic kidney disease with stage 1 through stage 4 chronic kidney disease, or unspecified chronic kidney disease; Z95.5 Presence of coronary angioplasty implant and graft; F41.8 Other specified anxiety disorders; E11.22 Type 2 diabetes mellitus with diabetic chronic kidney disease; E11.69 Type 2 diabetes mellitus with other specified complication; E78.5 Hyperlipidemia, unspecified; E11.40 Type 2 diabetes mellitus with diabetic neuropathy, unspecified; K21.9 Gastro-esophageal reflux disease without esophagitis; E03.9 Hypothyroidism, unspecified; M54.5 Low back pain; G89.29 Other chronic pain; E11.59 Type 2 diabetes mellitus with other circulatory complications; D63.1 Anemia in chronic kidney disease; G47.33 Obstructive sleep apnea (adult) (pediatric); Z79.4 Long term (current) use of insulin; Z87.891 Personal history of nicotine dependence; Z20.828 Contact with and (suspected) exposure to other viral communicable diseases; J44.9 Chronic obstructive pulmonary disease, unspecified; Z99.81 Dependence on supplemental oxygen
CPT/HCPCS: 36415; 36430; 36600; 70450; 70547; 70551; 71045; 71250; 74176; 76775; 78580; 80048; 80053; 80061; 80069; 81001; 82550; 82570; 82607; 82728; 82746; 82805; 83036; 83540; 83550; 83605; 83690; 83735; 83883; 83935; 84100; 84105; 84132; 84133; 84156; 84300; 84443; 84484; 85014; 85018; 85025; 85027; 85380; 85610; 85652; 85730; 85999; 86038; 86140; 86160; 86162; 86334; 86335; 86430; 86803; 86850; 86900; 86901; 86923; 87635; 92610; 93005; 93880; 93971; 94640; 94762; 95816; 96361; 96374; 99285; A9270; A9540; C8929; C9803; G0378; J0456; J0696; J1815; J1940; J2930; J7030; J7050; J7512; P9016; Q9957; U0003